=== PATIENT | female | born 1980 | race Caucasian/White ===

== ENCOUNTER 2020-01-07 13:10 | Inpatient (IN) | payer BC, SELFPAY ==
[2020-01-07] VITALS (12 sets, daily range): BP systolic 115–137; BP diastolic 66–102; PULSE 56–120; RESP 15–31; TEMP 36.6–37; O2SAT 96–100; BMI 32.8
--- NOTE | ~2020-01-07 | US_ITS ---
EXAMINATION: US breast RT limited HISTORY: Palpable lump of the upper outer quadrant of the right breast TECHNIQUE: Limited right breast ultrasound is performed. FINDINGS: There is a 1.1 x 0.7 x 0.5 cm oval, circumscribed, parallel, hypoechoic area within the ski n of the right breast at the 10:00 location 9 cm from the nipple corresponding to the palpable abnorm ality. There is posterior acoustic enhancement and associated increased vascularity. IMPRESSION: Findings consistent with infected sebaceous cyst of the right breast. BI-RADS Category 2: Benign finding(s). Reviewed, dictated and finalized at location A.
--- NOTE | ~2020-01-07 | MR_ITS ---
EXAMINATION: MR MRCP wo con/w 3D wo ind pp DATE: 01/09/2020 08:46 INDICATION: Abdominal pain with nausea. Chronic pancreatitis. TECHNIQUE: Magnetic resonance imaging (MRI) of the abdomen was performed without intravenous contrast . Sequences included coronal T2-weighted FS FSE, coronal T2-weighted FSE, axial T1-weighted LAVA, cor onal FS FIESTA, axial dual-echo T1-weighted SPGR, coronal lava-FLEX, sagittal T2-weighted FSE, axial T2-weighted FSE, and axial DWI. Thick-slab T2-weighted FSE images were obtained for magnetic resonanc e cholangiopancreatography (MRCP). Maximum intensity projection 3-D reconstructions of the volumetric data were created by the technologist. COMPARISON: Abdomen MRI 05/18/2010, CT abdomen and pelvis 01/07/2020 FINDINGS: ABDOMEN MRI: The liver and spleen are normal. The gallbladder is absent. There are dilated pancreatic duct sidechains in the tail of the pancreas, consistent with chronic pancreatitis. The adrenal gland s and kidneys are normal. There are no dilated loops of bowel. There are no pathologically enlarged l ymph nodes. There is no free intraperitoneal fluid. ABDOMEN MRCP: The common duct is normal and measures 5 mm. No choledocholithiasis. IMPRESSION: 1. No choledocholithiasis. 2. Chronic pancreatitis. Reviewed, dictated and finalized at location A.
--- NOTE | ~2020-01-07 | CT_ITS ---
EXAMINATION: CT abdomen pelvis wo con EXAM DATE: 01/07/2020 19:18 INDICATION: Upper abdominal pain with nausea and vomiting. TECHNIQUE: Spiral CT of the abdomen and pelvis was performed without contrast. Axial, coronal and sag ittal images were reviewed. The dose-length product (DLP) for this examination was 1133.30 mGy-cm. The exposure was tailored according to patient size (auto mA exposure control), and iterative reconst ruction (ASIR) was used as additional dose reduction technique. There is no prior study for comparis on. FINDINGS: Patient has had interval hysterectomy, which could explain the pelvic fat stranding identif ied. There is no nephrolithiasis or hydronephrosis. The bladder is unremarkable. Some chronic pancrea tic calcifications. Otherwise the liver, spleen, adrenal glands and pancreas are unremarkable. There are cholecystectomy clips. There is no retroperitoneal or pelvic lymphadenopathy. The appendix is normal. The stomach and small bowel are unremarkable. Small amount of colonic stool . No free intraperitoneal gas. The heart is normal in size. There are no pericardial or pleural effusions. The lung bases are unremarkable. The bones are unremarkable. IMPRESSION: 1. Interval hysterectomy with some pelvic fat stranding, likely postoperative. 2. No acute intra-abdominal findings. Reviewed, dictated and finalized at location A.
[2020-01-07 13:55] LABS: Basophils Percent Auto 0.2 % (0.2-1.2); Eosinophils Percent Auto 0.2 % (0-4.4); Hematocrit 36.9 % (37.0-47.0); Hemoglobin 11.5 g/dL (12.0-15.0); Immature Granulocyte Absolute 0.05 K/mm3 (0.00-0.031); Immature Granulocyte Percent A 0.4 % (0-0.5); Lymphocytes Absolute Auto 1.42 K/mm3 (0.9-3.2); Mean Corpuscular HGB Conc 31.2 g/dl (32-36); Mean Corpuscular Hemoglobin 24.6 pg (26-34); Mean Corpuscular Volume 78.8 fl (80-100); Mean Platelet Volume 10.2 fl (7.4-10.4); Monocytes Absolute Auto 0.8 K/mm3 (0.1-0.6); Monocytes Percent Auto 5.8 % (2.6-8.5); Neutrophils Absolute Auto 11.9 K/mm3 (1.3-6.7); Neutrophils Percent Auto 83.4 % (45.5-73.1); Platelet Count Result 617 k/mm3 (150-375); Red Blood Count 4.68 M/mm3 (4.2-5.4); Red Cell Distribution Width 13.5 % (11.5-14.5); White Blood Count 14.3 K/mm3 (4.5-10.0)
[2020-01-07 14:06] LABS: Alanine Aminotransferase 33 U/L (4-35); Albumin Level 4.7 g/dL (3.5-5.1); Alkaline Phosphatase 115 U/L (38-126); Aspartate Amino Transferase 43 U/L (14-36); Bilirubin,Total 0.8 mg/dL (0.2-1.3); Blood Urea Nitrogen 9 mg/dL (7-17); Calcium 9.8 mg/dL (8.4-10.2); Carbon Dioxide 20 mmol/L (22-30); Chloride 100 mmol/L (98-107); Estimated CRCL calculation 92 ml/min; Estimated Glomerular Filt Rate > 60; Glucose 153 mg/dL (65-105); Lipase 151 U/L (23-300); Sodium 137 mmol/L (137-145)
--- NOTE | 2020-01-07 18:06 | ED.ABDPAIN ---
HPI - Abdominal Pain General Chief Complaint: Abdominal Pain Stated Complaint: pancreatitis Time Seen by Provider: 01/07/20 17:50 Source: patient Mode of arrival: ambulatory Limitations: no limitations History of Present Illness HPI narrative: 39 yo female with h/o chronic pancreatitis, fibromyalgia who presents with c/o epigastric abdominal pain since December 18. Patient states had right ovarian mass removal and hysterectomy at [facility] on December 18. She reports she started having worsening pain after her surgery so she was admitted with elevated pancreas enzymes. She states she was admitted for 4 days and then she was released. She states she has been having worsening pain since with nausea and vomiting. She states she is unable to keep anything down. She describes severe pain that is radiating to her midback. This is similar to her previous episodes. She reports she has been having flares of pancreatitis for over 7 years since she had HELLP syndrome with her last . It has been over 7 years since she had GI scope. She has an appointment with gastroenterology at [facility] . MD elicited complaint: abdominal pain Location: epigastric Related Data Home Medications Medication Instructions Recorded Confirmed No Home Medications 01/07/20 01/07/20 Allergies Allergy/AdvReac Type Severity Reaction Status Date / Time NSAIDS (Non-Steroidal Allergy Severe Anaphylactic Verified 01/07/20 18:59 Anti-Inflamma Shock iohexol Allergy Swelling Verified 01/07/20 18:59 [From CONTRAST - CT, XRAY] of Lip/Tongue/Throat ENVIRONMENTAL ALLERGENS Allergy Mild Unknown Uncoded 11/12/19 08:17 Review of Systems Review of Systems: All systems reviewed & are unremarkable except as noted in HPI and below Constitutional: Constitutional: Reports chills and Reports fever(s) ENT: Reports dizziness and Denies nasal congestion Cardiovascular: Cardiovascular: Denies chest pain Respiratory: Respiratory: Denies cough and Denies dyspnea Gastrointestinal: Gastrointestinal: Reports abdominal pain, Reports nausea and Reports vomiting Genitourinary: Genitourinary: Reports no additional female genitourinary complaints Musculoskeletal: Musculoskeletal: Reports back pain [facility] Past Medical History Medical History (Updated 01/07/20 @ 20:21 by Emi Agarwal MD) Chronic pancreatitis Fibromyalgia Gall bladder disease GERD (gastroesophageal reflux disease) Herniated disc, cervical x4 History of pneumonia Hx of gout Neuropathy Right arm fracture Surgical History Surgical History (Updated 01/07/20 @ 18:14 by Emi Agarwal MD) H/O hysterectomy with oophorectomy H/O right wrist surgery History of cholecystectomy History of knee surgery History of partial cystectomy History of spinal surgery Hx of tubal ligation Social History Social History (Updated 11/12/19 @ 08:38 by TARYN Van) Smoking status: Never smoker Alcohol intake: never Substance use: never Gender identity (if verbalized by the patient): Female Exam Narrative: Exam Narrative: GENERAL: in moderate distress due to pain HEAD: Normocephalic, atraumatic EYES: PERRLA and EOMI, conjunctiva clear without discharge THROAT:Mucous membranes moist NECK: Supple, without lymphadenopathy or mass RESPIRATORY: No respiratory distress, Airway patent, Respirations non-labored, Clear to auscultation without rales, rhonchi or wheeze HEART: Regular rate and rhythm. No murmur heard. Normal peripheral pulses. ABDOMEN: Soft, bilateral upper quadrant, nondistended, normal active bowel sounds. No masses. No rebound or guarding, No organomegaly. EXTREMITIES: No edema, normal strength with full range of motion. SKIN: Warm, dry, pale NEURO: Alert and oriented x3. CN 2-12 grossly intact. No focal deficits. PSYCH: Normal mood and affect. Course Reevaluation(s) Reevaluation #1: PAtient states her pain is gone but she is
[2020-01-07] MEDS: ONDANSETRON INJ 4 MG/2 ML VIAL IV PUSH ×2 (18:50→22:53)
[2020-01-07] MEDS: LACTATED RINGERS 1,000 ML 999 ML IV CONT (18:50)
[2020-01-07] MEDS: PANTOPRAZOLE SODIUM IV 40 MG VIAL IV PUSH (18:52)
[2020-01-07] MEDS: HYDROMORPHONE HCL 1 MG/ML INJ IV PUSH (18:54)
[2020-01-07 20:17] LABS: Add Urine Microscopic? YES; Appearance Urine Cloudy (Clear); Bacteria Urine Trace /hpf; Bilirubin Urine Negative (Negative); Blood Urine 1+ (Negative); Color Urine Yellow (Yellow); Glucose Urine UA Negative (Negative); Ketones Urine 1+ mg/dL (Negative); Leukocyte Esterase Ur 3+ LEU/UL (Negative); Mucus Urine Heavy /lpf; Nitrate Urine Negative (Negative); Protein Urine 1+ mg/dL (Negative); Squamous Epithelial Cell Urine Many /hpf (Few); WBC Urine 51-75 /hpf
[2020-01-07] MEDS: METOCLOPRAMIDE HCL INJ 10 MG/2 ML VIAL IV PUSH (20:22)
[2020-01-07] MEDS: LACTATED RINGERS 1,000 ML 125 ML IV CONT (21:49)
--- NOTE | 2020-01-07 22:06 | ADMGEN ---
This patient, Lizeth Napier, was admitted to Medical Room 347-. Patient/family oriented to hospital policies and general routines including ID bracelet, bed and alarms, visiting hours, pain management, procedures, bathroom and other care routines, personal items, smoking policy, room service/diet, and visiting hours. Valuables list has been completed. Information on how to activate the Rapid Response Team has been discussed. Patient/Family are encouraged to report perceived risks to care and to ask questions if they do not understand what they are told or what they should do.
[2020-01-07] MEDS: HYDROMORPHONE HCL 1 MG/ML INJ 0.5 MG IV PUSH (22:53)
[2020-01-08] MEDS: PROMETHAZINE HCL 25 MG/ML AMPUL IM (02:38)
[2020-01-08] MEDS: HYDROMORPHONE HCL 1 MG/ML INJ 0.5 MG IV PUSH ×5 (03:08→21:12)
[2020-01-08 04:54] VITALS: BP 132/81; PULSE 69; RESP 16; TEMP 36.4; O2SAT 98
[2020-01-08] MEDS: ONDANSETRON INJ 4 MG/2 ML VIAL IV PUSH ×4 (05:07→21:15)
[2020-01-08 05:38] LABS: Basophils Percent Auto 0.1 % (0.2-1.2); Eosinophils Percent Auto 0.6 % (0-4.4); Hematocrit 28.3 % (37.0-47.0); Hemoglobin 8.5 g/dL (12.0-15.0); Immature Granulocyte Absolute 0.02 K/mm3 (0.00-0.031); Immature Granulocyte Percent A 0.3 % (0-0.5); Lymphocytes Absolute Auto 1.65 K/mm3 (0.9-3.2); Lymphocytes Percent Auto 23.2 % (18.3-44.2); Mean Corpuscular Hemoglobin 24.6 pg (26-34); Mean Platelet Volume 10.3 fl (7.4-10.4); Monocytes Absolute Auto 0.6 K/mm3 (0.1-0.6); Monocytes Percent Auto 8.7 % (2.6-8.5); Neutrophils Absolute Auto 4.8 K/mm3 (1.3-6.7); Neutrophils Percent Auto 67.1 % (45.5-73.1); Platelet Count Result 357 k/mm3 (150-375); Red Blood Count 3.45 M/mm3 (4.2-5.4); Red Cell Distribution Width 13.6 % (11.5-14.5); White Blood Count 7.1 K/mm3 (4.5-10.0)
[2020-01-08 05:57] LABS: Alanine Aminotransferase 25 U/L (4-35); Albumin Level 3.5 g/dL (3.5-5.1); Alkaline Phosphatase 78 U/L (38-126); Aspartate Amino Transferase 25 U/L (14-36); Bilirubin,Total 0.4 mg/dL (0.2-1.3); Blood Urea Nitrogen 7 mg/dL (7-17); Calcium 8.7 mg/dL (8.4-10.2); Carbon Dioxide 25 mmol/L (22-30); Chloride 101 mmol/L (98-107); Estimated CRCL calculation 103 ml/min; Estimated Glomerular Filt Rate > 60; Glucose 98 mg/dL (65-105); Lipase 67 U/L (23-300); Potassium 3.3 mmol/L (3.4-5.0); Sodium 135 mmol/L (137-145)
[2020-01-08] MEDS: LACTATED RINGERS 1,000 ML 125 ML IV CONT ×2 (06:06→14:24)
[2020-01-08] MEDS: PANTOPRAZOLE SODIUM IV 40 MG VIAL IV PUSH (08:21)
[2020-01-08 14:00] VITALS: BP 120/73; PULSE 64; RESP 14; TEMP 36; O2SAT 99
--- NOTE | 2020-01-08 17:27 | PM.IMHP ---
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 She reports that her first , 13 years ago, was complicated by hyperemesis gravidarum, gallstones, and pancreatitis. She developed pre-eclampsia and HELLP syndrome and required cholecystectomy. She reports a long hx of chronic pancreatitis with intermittent exacerbations. She reports that her current sx have been present since 11/19/19. She notes that her pain originally started as lower abdominal discomfort with bloating. She was diagnosed with a large right ovarian mass and underwent right oophorectomy and hysterectomy by Dr. Goodrich 12/18/19 at [place]. She reports that her lower abdominal discomfort and bloating improved following mass removal. She has not received pathology reports yet. She reports that she developed acute on chronic pancreatitis post-operatively (pancreatic enzymes 1800 per pt) and was admitted for IV fluid hydration and pain management at [facility]. She reports that sx improved somewhat while hospitalized and she discharged home on CLD. Her sx worsened 01/03-01/04 with the development of significant epigastric abdominal pain radiating to the back. She also endorses nausea and vomiting. She reports chronic constipation. Her last BM was Tuesday. She reports a hx of AM vomiting for many years but does note that this worsened recently. She also endorses weight loss due to decreased appetite. She denies hematemesis, melena, and hematochezia. She denies chest pain. She denies urinary urgency, frequency, and dysuria. She reports that pain is often worse immediately after eating. She was established with GI 7 years ago and reports a hx of at least 10 ERCPs. She also reports that she was told she had Barretts esophagus in the past which did clear on repeat EGD. She is not taking a PPI. She has not had an EGD or ERCP in at least 7 years since she moved and did not establish with a GI provider locally. She reports that she stopped taking all of her previous medications and elected to treat her condition with dietary modifications including intermittent NPO/CLD during sx exacerbations. She also c/o a right breast cyst intermittently for the past several months. Review of Systems Review of Systems: Narrative: Constitutional: Pt is afebrile. She endorses intermittent chills. She endorses anorexia and malaise. She denies sick contacts or recent travel. Eyes: Pt denies vision change. No additional eye complaints. ENT: Pt denies change in hearing, nasal congestion, dysphagia, odynophagia, and sore throat. Cardiovascular: Pt denies palpitations and chest pain. She denies PND and orthopnea. She denies dyspnea on exertion. Respiratory: She denies cough and shortness of breath. Gastrointestinal: She endorses epigastric abdominal pain radiating to the back. She also c/o nausea and vomiting. She is passing flatus. Last BM was Tuesday. She reports chronic constipation. She denies diarrhea. She denies hematochezia and melena. Genitourinary: She denies dysuria, frequency, urgency, and hesitancy. Musculoskeletal: She denies joint pain and swelling. She denies muscle cramps and weakness. Skin: She reports cystic and erythematous lesion on her right breast that is recurrent for the past several months. Neurologic: Denies focal weakness, paresthesias, confusion, and speech change. Reports chronic upper extremity neuropathy. Psychiatric: Denies mood change. Reports anxiety that is managed non-pharmacologically. Hematologic: Denies easy bruising and bleeding. All systems reviewed & are unremarkable except as noted in HPI and below PMF
--- NOTE | 2020-01-08 19:11 | WPDGICN ---
Assessment and Plan Assessment and plan (1) Chronic pancreatitis: Qualifiers: Pancreatitis type: other Qualified Code(s): K86.1 - Other chronic pancreatitis Code(s): K86.1 - Other chronic pancreatitis Status: Acute Assessment and Plan: probably exacerbatin of chronic pancreatitis with normal enzymes. Will start her on creon with meals, also she has gastroparesis which can explain also symptoms- continue with antiemetics and will add reglan (she has taken before) will get mrcp to assess if pd strictures and will benefit from another ERCP (also get records from previous gi doctor) (2) Intractable nausea and vomiting: Code(s): R11.2 - Nausea with vomiting, unspecified Status: Acute Assessment and Plan: continue with antiemetics will do egd tomorrow (3) Gastroparesis: Code(s): K31.84 - Gastroparesis Status: Acute (4) Abdominal pain: Qualifiers: Abdominal location: unspecified location Qualified Code(s): R10.9 - Unspecified abdominal pain Code(s): R10.9 - Unspecified abdominal pain Status: Acute Assessment and Plan: recent gynecological surgery, will get records if possible of path report GI Consult Note Consult date/time: 01/08/20 19:11 Reason for consult: nausea, vomiting and abdominal pain HPI: Lizeth Napier is a 39 year old female she has history of chronic pancreatitis as complication from GS pancreatitis after had HELLP syndrome about 13-14 years ago, she required multiple ERCP with PD stents (last one about 7 years ago), [place] and when came back did not establish with GI doctor. She also has been diagnosed with gastroparesis (had abnormal gastric emptying study and tried reglan previously). She normally has mild abdominal pain but on October had more pain with bloating than usual, diagnosed with large ovarian mass which was removed in [facility] with hysterectomy but she had persistent nausea, vomiting and also abdominal discomfort, similar to previous exacerbation of chronic pancreatitis. CT a/p showed interval hysterectomy with some pelvic fat stranding, likely postoperative, no acute intra-abdominal findings. AST yesterday mildly elevated, today normal labs including lipase. Review of Systems Constitutional: Constitutional: Denies headache(s) and Denies weakness Eyes: Eyes: Denies blurry vision ENT: Reports Normal hearing present, Denies headache(s) and Denies neck pain Cardiovascular: Cardiovascular: Denies chest pain and Denies dyspnea Respiratory: Respiratory: Denies dyspnea Gastrointestinal: Gastrointestinal: Reports abdominal pain, Reports bloating and Reports nausea Genitourinary: Genitourinary: Denies dysuria Musculoskeletal: Musculoskeletal: Denies neck pain Integumentary/Breasts: Skin/Breast: Denies dry skin Neurologic: Reports Normal hearing present, Denies headache(s) and Denies weakness Psychiatric: Psychiatric: Denies anxiety Endocrine: Endocrine: Denies change in body appearance Hematologic/Lymphatic: Hematologic/Lymphatic: Denies easy bleeding Allergic/Immunologic: Allergic/Immunologic: Denies urticaria PMFSH Past Medical History Medical History (Updated 01/08/20 @ 19:20 by Roderick Garcia MD) Abdominal pain Chronic pancreatitis Constipation Fibromyalgia Gall bladder disease Gastroparesis GERD (gastroesophageal reflux disease) Herniated disc, cervical x4 History of pneumonia Hx of gout Neuropathy Right arm fracture Surgical History Surgical History (Updated 01/08/20 @ 19:07 by Charisse Rivas PA-C) H/O hysterectomy with oophorectomy Right oophorectomy H/O right wrist surgery History of cholecystectomy History of knee surgery History of partial cystectomy History of spinal surgery Hx of tubal ligation Family History Family History (Updated 01/08/20 @ 19:10 by Charisse Rivas PA-C) Mother Diabetes mellitus Father Oral cancer
[2020-01-08] MEDS: METOCLOPRAMIDE HCL 5 MG TABLET PO (20:22)
[2020-01-08 22:00] VITALS: BP 127/69; PULSE 77; RESP 16; TEMP 36.3; O2SAT 98
[2020-01-09] VITALS (7 sets, daily range): BP systolic 114–148; BP diastolic 62–94; PULSE 70–88; RESP 15–28; TEMP 36.2–36.3; O2SAT 97–100
[2020-01-09] MEDS: HYDROMORPHONE HCL 1 MG/ML INJ 0.5 MG IV PUSH ×4 (01:22→13:18)
[2020-01-09] MEDS: LACTATED RINGERS 1,000 ML 125 ML IV CONT (04:17)
[2020-01-09] MEDS: ONDANSETRON INJ 4 MG/2 ML VIAL IV PUSH ×3 (05:27→13:17)
[2020-01-09] MEDS: METOCLOPRAMIDE HCL 5 MG TABLET PO ×4 (05:35→22:12)
[2020-01-09 05:55] LABS: Basophils Percent Auto 0.1 % (0.2-1.2); Eosinophils Absolute Auto 0.1 K/mm3 (0-0.3); Eosinophils Percent Auto 0.8 % (0-4.4); Hematocrit 28.4 % (37.0-47.0); Hemoglobin 8.4 g/dL (12.0-15.0); Immature Granulocyte Absolute 0.02 K/mm3 (0.00-0.031); Immature Granulocyte Percent A 0.3 % (0-0.5); Lymphocytes Absolute Auto 1.43 K/mm3 (0.9-3.2); Lymphocytes Percent Auto 19.8 % (18.3-44.2); Mean Corpuscular HGB Conc 29.6 g/dl (32-36); Mean Corpuscular Hemoglobin 24.3 pg (26-34); Mean Corpuscular Volume 82.3 fl (80-100); Mean Platelet Volume 10.6 fl (7.4-10.4); Monocytes Absolute Auto 0.6 K/mm3 (0.1-0.6); Monocytes Percent Auto 7.6 % (2.6-8.5); Neutrophils Absolute Auto 5.1 K/mm3 (1.3-6.7); Neutrophils Percent Auto 71.4 % (45.5-73.1); Platelet Count Result 322 k/mm3 (150-375); Red Blood Count 3.45 M/mm3 (4.2-5.4); Red Cell Distribution Width 13.6 % (11.5-14.5); White Blood Count 7.2 K/mm3 (4.5-10.0)
[2020-01-09 06:21] LABS: Alanine Aminotransferase 20 U/L (4-35); Albumin Level 3.3 g/dL (3.5-5.1); Alkaline Phosphatase 77 U/L (38-126); Aspartate Amino Transferase 21 U/L (14-36); Bilirubin,Total 0.3 mg/dL (0.2-1.3); Blood Urea Nitrogen 3 mg/dL (7-17); Calcium 8.5 mg/dL (8.4-10.2); Carbon Dioxide 25 mmol/L (22-30); Chloride 103 mmol/L (98-107); Estimated CRCL calculation 103 ml/min; Estimated Glomerular Filt Rate > 60; Glucose 84 mg/dL (65-105); Lipase 95 U/L (23-300); Potassium 3.7 mmol/L (3.4-5.0); Sodium 136 mmol/L (137-145)
[2020-01-09 07:03] LABS: Iron 27 ug/dL (37-170)
[2020-01-09 07:04] LABS: Hypochromasia 1+ (NORMAL); Platelet Estimate Adequate (Adequate)
[2020-01-09 07:12] LABS: Percent Iron Saturation 9 % (20-50)
[2020-01-09 09:12] LABS: Transferrin 236 mg/dL (206-381)
[2020-01-09] MEDS: PANTOPRAZOLE SODIUM IV 40 MG VIAL IV PUSH (09:32)
[2020-01-09] MEDS: LACTATED RINGERS 1,000 ML 150 ML IV CONT (10:56)
--- NOTE | 2020-01-09 11:12 | WPDANESEPPF ---
Anes - Initial Pre Proc Eval Procedure: Operation Date: 01/09/20 11:30 Proposed Procedures p Esophagogastroduodenoscopy - Roderick Garcia MD Date/Time: 01/09/20 11:12 Surgeon: Charisse Rivas PA-C Pre Op Diagnosis: intractable nausea and vomiting chronic pencreatit Patient Data Age: 39 Gender: F Height: 5 ft 8 in Weight: 98 kg Last Vital Signs Temp 97.2 F L 01/09/20 10:51 Pulse 75 01/09/20 10:51 Resp 18 01/09/20 10:51 BP 141/90 H 01/09/20 10:51 Pulse Ox 99 01/09/20 10:51 Allergies Allergy/AdvReac Type Severity Reaction Status Date / Time NSAIDS (Non-Steroidal Allergy Severe Anaphylactic Verified 01/07/20 18:59 Anti-Inflamma Shock iohexol Allergy Swelling Verified 01/07/20 18:59 [From CONTRAST - CT, XRAY] of Lip/Tongue/Throat ENVIRONMENTAL ALLERGENS Allergy Mild Unknown Uncoded 11/12/19 08:17 Home Medications Medication Instructions Recorded Confirmed Type No Home Medications 01/07/20 01/07/20 History Laboratory Tests 01/09/20 01/09/20 01/09/20 05:19 05:19 05:19 WBC 7.2 K/mm3 K/mm3 (4.5-10.0) RBC 3.45 M/mm3 L M/mm3 (4.2-5.4) Hgb 8.4 g/dL L g/dL (12.0-15.0) Hct 28.4 % L % (37.0-47.0) MCV 82.3 fl fl (80-100) MCH 24.3 pg L pg (26-34) MCHC 29.6 g/dl L g/dl (32-36) RDW 13.6 % % (11.5-14.5) Plt Count 322 k/mm3 k/mm3 (150-375) MPV 10.6 fl H fl (7.4-10.4) Immature Gran % (Auto) 0.3 % % (0-0.5) Neut % (Auto) 71.4 % % (45.5-73.1) Lymph % (Auto) 19.8 % % (18.3-44.2) [place] % (Auto) 7.6 % % (2.6-8.5) Eos % (Auto) 0.8 % % (0-4.4) Baso % (Auto) 0.1 % L % (0.2-1.2) Lymph # (Auto) 1.43 K/mm3 K/mm3 (0.9-3.2) [place] # (Auto) 0.6 K/mm3 K/mm3 (0.1-0.6) Eos # (Auto) 0.1 K/mm3 K/mm3 (0-0.3) Baso # (Auto) 0.0 K/mm3 K/mm3 (0.0-0.1) Abs Immat Gran (auto) 0.02 K/mm3 K/mm3 (0.00-0.031) Absolute Neuts (auto) 5.1 K/mm3 K/mm3 (1.3-6.7) Absolute Nucleated RBC 0.0 K/mm3 K/mm3 (0.0-0.012) Nucleated RBC % 0.0 % % (0.0-0.2) Platelet Estimate Adequate (Adequate) Hypochromasia 1+ (NORMAL) Sodium 136 mmol/L L mmol/L (137-145) Potassium 3.7 mmol/L mmol/L (3.4-5.0) Chloride 103 mmol/L mmol/L (98-107) Carbon Dioxide 25 mmol/L mmol/L (22-30) BUN 3 mg/dL L mg/dL (7-17) Creatinine 0.80 mg/dL mg/dL (0.7-1.0) Estim Creat Clear Calc 103 ml/min ml/min Estimated GFR > 60 (59 - ) Glucose 84 mg/dL mg/dL (65-105) Calcium 8.5 mg/dL mg/dL (8.4-10.2) Iron 27 ug/dL L ug/dL (37-170) TIBC 312 ug/dL ug/dL (261-462) % Saturation 9 % L % (20-50) Transferrin Ferritin Total Bilirubin 0.3 mg/dL mg/dL (0.2-1.3) AST 21 U/L U/L (14-36) ALT 20 U/L U/L (4-35) Alkaline Phosphatase 77 U/L U/L (38-126) Total Protein 6.0 g/dL L g/dL (6.3-8.2) Albumin 3.3 g/dL L g/dL (3.5-5.1) Lipase 95 U/L U/L (23-300) 01/09/20 01/09/20 07:32 07:33 WBC RBC Hgb Hct MCV MCH MCHC RDW Plt Count MPV Immature Gran % (Auto) Neut % (Auto) Lymph % (Auto) [place] % (Auto) Eos % (Auto) Baso % (Auto) Lymph # (Auto) [place] # (Auto) Eos # (Auto) Baso # (Auto) Abs Immat Gran (auto) Absolute Neuts (auto) Absolute Nucleated RBC Nucleated RBC % Platelet Estimate Hypochromasia Sodium Potassium Chloride Carbon Dioxide
[2020-01-09] MEDS: LIPASE/AMYLASE/PROTEASE 12,000 UNITS CAP 1 CAP PO ×2 (13:04→16:53)
--- NOTE | 2020-01-09 14:33 | PM.IMPN ---
Progress Note: A&P Assessment and Plan (1) Chronic pancreatitis: Qualifiers: Pancreatitis type: other Qualified Code(s): K86.1 - Other chronic pancreatitis Code(s): K86.1 - Other chronic pancreatitis Status: Acute Assessment and Plan: The pt presented with epigastric pain that radiates to the back, nausea, and vomiting. She states that these sx are consistent with her prior episodes of acute on chronic pancreatitis. Lipase is not elevated. CT abd/pelvis was performed and revealed chronic pancreatic calcifications without peripancreatic fat stranding, necrosis, or enlargement. MRCP revealed evidence of chronic pancreatitis without evidence of pancreatic duct strictures or choledocholithiasis. Common bile duct was 5mm. ERCP was not indicated as Dr. Forrester does not feel it will provide any benefit. Plan to advance to CLD. Per Dr. Forrester, if pt tolerates CLD for lunch, she may advance to low fat, low residue diet. Continue supportive care for chronic pancreatitis Continue pancreatic enzyme supplementation Continue IV fluid hydration, will decrease rate to 75 ml/hr as pt is no longer NPO Will transition to PO pain medication and zofran to ensure pt will tolerate PO regimen Dr. Forrester has been consulted, recommendations are greatly appreciated. (2) Gastroparesis: Code(s): K31.84 - Gastroparesis Status: Acute Assessment and Plan: The pt reports a hx of gastroparesis which was treated with metoclopramide in the past. It is likely that her nausea, vomiting, early satiety, and upper abdominal discomfort are, in part, due to underlying gastroparesis. Dr. Forrester has recommended metoclopramide Will discuss dietary modifications with the pt as well (3) GERD (gastroesophageal reflux disease): Code(s): K21.9 - Gastro-esophageal reflux disease without esophagitis Status: Acute Assessment and Plan: The pt reports a hx of Bustos's esophagus which resolved on repeat EGD. Last EGD was at least 7 years ago. She has not been taking PPI prior to admission. Dr. Forrester recommended EGD today. The pt underwent EGD which revealed reflux esophagitis and gastritis without ulcers or erosions. Biopsies were obtained. This is likely contributing to her pain. Will continue IV PPI while pt is inpatient. Pt will need PPI at discharge. Dr. Forrester has added carafate as well (4) Intractable nausea and vomiting: Code(s): R11.2 - Nausea with vomiting, unspecified Status: Acute Assessment and Plan: The pt had intractable nausea 01/06 that required promethazine in addition to zofran. She is doing well on zofran. She did have AM emesis (300cc, no hemoptysis). Continue zofran, will switch to PO zofran Suspect that gastroparesis is contributing as pt reports hx of gastroparesis and previously took metoclopramide when she used to follow-up regularly with GI (5) Constipation: Code(s): K59.00 - Constipation, unspecified Status: Acute Assessment and Plan: The pt reports a long hx of constipation. Her last BM was Tuesday. She does not feel constipated at this time. PO intake has been decreased. Will continue to monitor (6) Sebaceous cyst of breast: Code(s): N60.89 - Other benign mammary dysplasias of unspecified breast Status: Acute Assessment and Plan: Pt reported recurrent breast mass for the past several months. It is approximately 1x0.5cm in size. The area was initially irritated by her bra strap several months ago and is intermittently inflamed. It has resolved on its own previously. There is mild erythema surrounding the cyst (<1cm radius around cyst) without fluctuance or drainage. It is freely mobile without tethering. Breast US also suggests sebaceous cyst without any other masses identified. It appears inflamed but I do not believe that clinically, it is acutely infected. Will begin w
[2020-01-09] MEDS: LACTATED RINGERS 1,000 ML 75 ML IV CONT (16:28)
[2020-01-09] MEDS: SUCRALFATE SUSP 100 MG/ML 10 ML UDC 1000 MG PO ×2 (16:52→22:12)
[2020-01-09] MEDS: ONDANSETRON HCL ODT 4 MG TABLET PO (18:47)
[2020-01-09] MEDS: ACETAMINOPHEN 325 MG TABLET 650 MG PO (22:13)
--- NOTE | 2020-01-09 23:01 | PC.NURSE ---
Spoke with Shavonne Gordillo PAC concerning nauseas/vomiting. Order for reglan 10 mg IV x 1 and continue to monitor.
[2020-01-10] MEDS: METOCLOPRAMIDE HCL INJ 10 MG/2 ML VIAL IV PUSH (01:09)
[2020-01-10] MEDS: ONDANSETRON INJ 4 MG/2 ML VIAL IV PUSH ×3 (01:09→18:12)
--- NOTE | 2020-01-10 03:04 | PC.NURSE ---
Spoke with Dr Vitale concerning patient still having nausea/vomiting after being given reglan and zofran IV. Orders given for nausea. Patient then complainign of pain and wanting something for sleep. Orders recieved. Will continue to monitor
[2020-01-10] MEDS: PROMETHAZINE HCL 25 MG/ML AMPUL IM (03:15)
[2020-01-10] MEDS: LORAZEPAM INJ 2 MG/ML VIAL 1 MG IV PUSH (03:16)
[2020-01-10 06:00] VITALS: BP 131/76; PULSE 88; RESP 16; TEMP 36.3; O2SAT 95
[2020-01-10 06:22] LABS: Eosinophils Percent Auto 0.4 % (0-4.4); Hematocrit 30.6 % (37.0-47.0); Hemoglobin 9.3 g/dL (12.0-15.0); Immature Granulocyte Absolute 0.02 K/mm3 (0.00-0.031); Immature Granulocyte Percent A 0.3 % (0-0.5); Lymphocytes Absolute Auto 1.03 K/mm3 (0.9-3.2); Mean Corpuscular HGB Conc 30.4 g/dl (32-36); Mean Corpuscular Hemoglobin 24.8 pg (26-34); Mean Corpuscular Volume 81.6 fl (80-100); Mean Platelet Volume 10.7 fl (7.4-10.4); Monocytes Absolute Auto 0.5 K/mm3 (0.1-0.6); Monocytes Percent Auto 5.8 % (2.6-8.5); Neutrophils Absolute Auto 6.4 K/mm3 (1.3-6.7); Neutrophils Percent Auto 80.5 % (45.5-73.1); Platelet Count Result 344 k/mm3 (150-375); Red Blood Count 3.75 M/mm3 (4.2-5.4); Red Cell Distribution Width 13.6 % (11.5-14.5)
[2020-01-10 06:42] LABS: Alanine Aminotransferase 18 U/L (4-35); Albumin Level 3.7 g/dL (3.5-5.1); Alkaline Phosphatase 82 U/L (38-126); Aspartate Amino Transferase 21 U/L (14-36); Bilirubin,Total 0.4 mg/dL (0.2-1.3); Blood Urea Nitrogen 3 mg/dL (7-17); Calcium 9.1 mg/dL (8.4-10.2); Carbon Dioxide 23 mmol/L (22-30); Chloride 103 mmol/L (98-107); Estimated CRCL calculation 103 ml/min; Estimated Glomerular Filt Rate > 60; Glucose 94 mg/dL (65-105); Potassium 3.8 mmol/L (3.4-5.0); Sodium 135 mmol/L (137-145)
[2020-01-10] MEDS: PANTOPRAZOLE SODIUM IV 40 MG VIAL IV PUSH (08:37)
[2020-01-10] MEDS: LACTATED RINGERS 1,000 ML 75 ML IV CONT (08:37)
[2020-01-10] MEDS: LIPASE/AMYLASE/PROTEASE 12,000 UNITS CAP 1 CAP PO ×3 (08:38→16:31)
--- NOTE | 2020-01-10 10:36 | P.PNAN_ITS ---
Anes - Prog Note Post-Op Date/Time: 01/10/20 10:36 Cardiovascular status: normal Respiratory status: normal Airway patency: baseline Mental status: baseline Post-Op hydration status: normal Vital Signs: Last Vital Signs Temp 36.3 C L 01/10/20 06:00 Pulse 88 01/10/20 06:00 Resp 16 01/10/20 06:00 BP 131/76 01/10/20 06:00 Pulse Ox 95 01/10/20 06:00 I/O: Intake & Output 01/09/20 01/10/20 01/10/20 23:59 07:59 15:59 Intake Total 120 1350 Output Total 1100 Balance 120 250 Laboratory Tests 01/10/20 05:57 01/10/20 05:57 01/10/20 01/10/20 05:57 05:57 WBC 8.0 RBC 3.75 L Hgb 9.3 L Hct 30.6 L MCV 81.6 MCH 24.8 L MCHC 30.4 L RDW 13.6 Plt Count 344 MPV 10.7 H Immature Gran % (Auto) 0.3 Neut % (Auto) 80.5 H Lymph % (Auto) 13.0 L [place] % (Auto) 5.8 Eos % (Auto) 0.4 Baso % (Auto) 0.0 L Lymph # (Auto) 1.03 [place] # (Auto) 0.5 Eos # (Auto) 0.0 Baso # (Auto) 0.0 Abs Immat Gran (auto) 0.02 Absolute Neuts (auto) 6.4 Absolute Nucleated RBC 0.0 Nucleated RBC % 0.0 Sodium 135 L Potassium 3.8 Chloride 103 Carbon Dioxide 23 BUN 3 L Creatinine 0.80 Estim Creat Clear Calc 103 Estimated GFR > 60 Glucose 94 Calcium 9.1 Total Bilirubin 0.4 AST 21 ALT 18 Alkaline Phosphatase 82 Total Protein 7.0 Albumin 3.7 Post-procedural complaints: none Patient Feedback: Patient satisfied with anesthetic care.
[2020-01-10] MEDS: METOCLOPRAMIDE HCL 5 MG TABLET PO ×3 (11:16→21:36)
[2020-01-10] MEDS: SUCRALFATE SUSP 100 MG/ML 10 ML UDC 1000 MG PO ×3 (11:16→21:36)
[2020-01-10 14:00] VITALS: BP 133/69; PULSE 96; RESP 16; TEMP 36.7; O2SAT 95
[2020-01-10] MEDS: HYDROMORPHONE HCL 1 MG/ML INJ 0.5 MG IV PUSH ×3 (14:03→22:10)
--- NOTE | 2020-01-10 16:38 | WPDGIPROGNO ---
Progress Note: A&P Assessment and Plan (1) Chronic pancreatitis: Qualifiers: Pancreatitis type: other Qualified Code(s): K86.1 - Other chronic pancreatitis Code(s): K86.1 - Other chronic pancreatitis Status: Acute Assessment and Plan: she has chronic pain, reviewed hospital records from [facility] after her hysterectomy and ovarian surgery (path benign) last month, she also had CT scan that showed exacerbation of chronic pancreatitis. continue with supportive care, pain meds as needed and advance diet as tolerated continue with creon, antiemetics prn she can see me in office after discharge (2) Abdominal pain: Qualifiers: Abdominal location: unspecified location Qualified Code(s): R10.9 - Unspecified abdominal pain Code(s): R10.9 - Unspecified abdominal pain Status: Acute Assessment and Plan: multifactorial (gastroparesis, chronic pancreatitis, etc). egd showed reflux esophagitis and mild gastritis (3) Iron deficiency anemia: Qualifiers: Iron deficiency anemia type: unspecified iron deficiency Qualified Code(s): D50.9 - Iron deficiency anemia, unspecified Code(s): D50.9 - Iron deficiency anemia, unspecified Status: Acute Assessment and Plan: chronic, it was also part of the reason she had hysterectomy. She says that had colonoscopy in 2011 (4) Intractable nausea and vomiting: Code(s): R11.2 - Nausea with vomiting, unspecified Status: Acute (5) GERD (gastroesophageal reflux disease): Qualifiers: Esophagitis presence: with esophagitis Qualified Code(s): K21.0 - Gastro-esophageal reflux disease with esophagitis Code(s): K21.9 - Gastro-esophageal reflux disease without esophagitis Status: Acute Assessment and Plan: continue with ppi Subjective Date/time seen: 01/10/20 16:38 Interval history: yesterday when IV medications were discontinued she got sicker again, now is feeling better after received iv meds and able to tolerate diet, less nausea and pain now is under control. Review of Systems Review of Systems: All systems reviewed & are unremarkable except as noted in HPI and below Exam Const: General: comfortable and no acute distress HENMT: General nose exam: Normal nares present Eyes: General: appearance normal, both eyes and all related structures Neck: Neck: no JVD Resp: Auscultation: clear to auscultation bilaterally Cardio: Rate: regular rate Rhythm: regular rhythm GI: Inspection: non-distended GI Palp: Yes Soft to palpation Skin: General skin exam: normal color Neuro: General: gait normal Speech: normal speech Extrem: General: normal to inspection Psych: Mental Status: mental status grossly normal Objective Data Vital Signs Vital Signs: Vital Signs - 24 hr 01/09/20 20:52 01/10/20 06:00 01/10/20 14:00 Temperature 97.1 F L 97.4 F L 98.1 F Pulse Rate 88 88 96 Respiratory Rate 16 16 16 Blood Pressure 135/85 131/76 133/69 Pulse Oximetry 99 95 95 Intake/Output Intake/Output: Intake & Output 01/07/20 01/08/20 01/09/20 01/10/20 23:59 23:59 23:59 23:59 Intake Total 1150 2520 3570 1670 Output Total 2400 1100 Balance 1150 2520 1170 570 Meds/Results Medications: Active Medications Generic Name Dose Route Start Last Admin Trade Name Freq PRN Reason Stop Dose Admin Lipase/Protease/Amylase 1 cap 01/09/20 08:00 01/10/20 16:[address] 12,000 Units Capsule PO 1 cap TIDWM ROSEANNA Administration Hydromorphone HCl 0.5 mg 01/10/20 13:34 01/10/20 14:03 Dilaudid Inj IV PUSH 0.5 mg Q4HR PRN Administration Pain Rated 7-10 Lactated Ringer's 1,000 mls @ 75 mls/hr 01/07/20 20:25 01/10/20 09:47 Lr - Lactated Ringers Iv IV CONT Not Given .[id number] ROSEANNA Acetaminophen 1,000 mg in 100 mls @ 400 mls/hr 01/10/20 12:00 01/10/20 11:29 Ofirmev 1,000 Mg Ivpb IVPB 01/11/20 12:01 Infused Q6HR ROSEANNA Infusion Lid
--- NOTE | 2020-01-10 19:13 | PM.IMPN ---
Progress Note: A&P Assessment and Plan (1) Chronic pancreatitis: Qualifiers: Pancreatitis type: other Qualified Code(s): K86.1 - Other chronic pancreatitis Code(s): K86.1 - Other chronic pancreatitis Status: Acute Assessment and Plan: The pt presented with epigastric pain that radiates to the back, nausea, and vomiting. She states that these sx are consistent with her prior episodes of acute on chronic pancreatitis. Lipase is not elevated. CT abd/pelvis was performed and revealed chronic pancreatic calcifications without peripancreatic fat stranding, necrosis, or enlargement. MRCP revealed evidence of chronic pancreatitis without evidence of pancreatic duct strictures or choledocholithiasis. Common bile duct was 5mm. ERCP was not indicated as Dr. Forrester does not feel it will provide any benefit. Pt tolerated CLD yesterday. She noted increased nausea and emesis overnight with the transition to PO zofran and PO pain regimen for discharge preparation. Continue supportive care for chronic pancreatitis Continue pancreatic enzyme supplementation Pt is tolerating PO fluid intake well. Will discontinue IV fluids. Pt did not tolerate PO regimen overnight and this AM with significant nausea, pain, and emesis overnight. Will resume IV zofran and IV dilaudid for today as pt has been in too much pain to advance diet. Appreciate continued input from Dr. Forrester (2) Gastroparesis: Code(s): K31.84 - Gastroparesis Status: Acute Assessment and Plan: The pt reports a hx of gastroparesis which was treated with metoclopramide in the past. It is likely that her nausea, vomiting, early satiety, and upper abdominal discomfort are, in part, due to underlying gastroparesis. Dr. Forrester has recommended metoclopramide Will discuss dietary modifications with the pt as well Discussed the risk for dystonia and tardive dyskinesia with the pt. She did not have these sx with prior use. She verbalized understanding. (3) GERD (gastroesophageal reflux disease): Qualifiers: Esophagitis presence: with esophagitis Qualified Code(s): K21.0 - Gastro-esophageal reflux disease with esophagitis Code(s): K21.9 - Gastro-esophageal reflux disease without esophagitis Status: Acute Assessment and Plan: The pt reports a hx of Bustos's esophagus which resolved on repeat EGD. Last EGD was at least 7 years ago. She has not been taking PPI prior to admission. The pt underwent EGD 01/08 which revealed reflux esophagitis and gastritis without ulcers or erosions. Biopsies were obtained. This is likely contributing to her pain. Will continue IV PPI while pt is inpatient. Pt will need PPI at discharge. Dr. Forrester has added carafate as well (4) Intractable nausea and vomiting: Code(s): R11.2 - Nausea with vomiting, unspecified Status: Acute Assessment and Plan: The pt had intractable nausea 01/06 that required promethazine in addition to zofran. She is doing well on zofran. She had emesis overnight with switch to PO regimen but no further episodes today. Continue zofran IV due to sx exacerbation on PO regimen Suspect that gastroparesis is contributing as pt reports hx of gastroparesis and previously took metoclopramide when she used to follow-up regularly with GI (5) Constipation: Code(s): K59.00 - Constipation, unspecified Status: Acute Assessment and Plan: The pt reports a long hx of constipation. Her last BM was Tuesday. She does not feel constipated at this time. PO intake has been decreased. Will continue to monitor (6) Sebaceous cyst of breast: Code(s): N60.89 - Other benign mammary dysplasias of unspecified breast Status: Acute Assessment and Plan: Pt reported recurrent breast mass for the past several months. It is approximately 1x0.5cm in size. The area was initially irritated by her bra strap
[2020-01-10 22:00] VITALS: BP 127/77; PULSE 72; RESP 16; TEMP 36.4; O2SAT 98
[2020-01-11] MEDS: HYDROMORPHONE HCL 1 MG/ML INJ 0.5 MG IV PUSH ×2 (02:41→06:48)
[2020-01-11] MEDS: ONDANSETRON INJ 4 MG/2 ML VIAL IV PUSH ×2 (02:41→06:48)
[2020-01-11 05:22] LABS: Hematocrit 29.9 % (37.0-47.0); Hemoglobin 9.1 g/dL (12.0-15.0); Mean Corpuscular HGB Conc 30.4 g/dl (32-36); Mean Corpuscular Hemoglobin 24.7 pg (26-34); Mean Platelet Volume 10.1 fl (7.4-10.4); Platelet Count Result 339 k/mm3 (150-375); Red Blood Count 3.69 M/mm3 (4.2-5.4); Red Cell Distribution Width 13.6 % (11.5-14.5); White Blood Count 6.2 K/mm3 (4.5-10.0)
[2020-01-11 05:38] LABS: Alanine Aminotransferase 17 U/L (4-35); Albumin Level 3.3 g/dL (3.5-5.1); Alkaline Phosphatase 81 U/L (38-126); Aspartate Amino Transferase 20 U/L (14-36); Bilirubin,Total 0.2 mg/dL (0.2-1.3); Blood Urea Nitrogen 2 mg/dL (7-17); Calcium 8.5 mg/dL (8.4-10.2); Carbon Dioxide 24 mmol/L (22-30); Chloride 104 mmol/L (98-107); Estimated CRCL calculation 103 ml/min; Estimated Glomerular Filt Rate > 60; Glucose 101 mg/dL (65-105); Potassium 3.3 mmol/L (3.4-5.0); Sodium 135 mmol/L (137-145)
[2020-01-11 06:00] VITALS: BP 123/75; PULSE 71; RESP 16; TEMP 36.1; O2SAT 99
[2020-01-11] MEDS: METOCLOPRAMIDE HCL 5 MG TABLET PO ×2 (06:41→13:06)
[2020-01-11] MEDS: SUCRALFATE SUSP 100 MG/ML 10 ML UDC 1000 MG PO ×2 (06:41→13:06)
[2020-01-11 08:00] VITALS: RESP 16
[2020-01-11] MEDS: PANTOPRAZOLE SODIUM IV 40 MG VIAL IV PUSH (08:07)
[2020-01-11] MEDS: LIPASE/AMYLASE/PROTEASE 12,000 UNITS CAP 1 CAP PO ×2 (08:07→13:06)
[2020-01-11] MEDS: POTASSIUM CHLORIDE 20 MEQ TABLET 40 MEQ PO (08:07)
[2020-01-11 08:41] LABS: Magnesium 1.9 mg/dL (1.6-2.3); Phosphorus 3.5 mg/dL (2.5-4.5)
[2020-01-11 14:00] VITALS: BP 124/88; PULSE 81; RESP 18; TEMP 35.9; O2SAT 99
[2020-01-11] MEDS: IRON SUCROSE COMPLEX 100 MG in SODIUM CHLORIDE 0.9% IV 50 ML 220 MG IVPB (14:11)
--- NOTE | 2020-01-11 14:35 | PM.DS ---
DS: Diagnosis Admitting Diagnosis Admitting Diagnosis: Other chronic pancreatitis Discharge Diagnosis (1) Gastro-esophageal reflux disease with esophagitis: Code(s): K21.0 - Gastro-esophageal reflux disease with esophagitis Status: Acute (2) Gastroparesis: Code(s): K31.84 - Gastroparesis Status: Chronic (3) Chronic pancreatitis: Qualifiers: Pancreatitis type: other Qualified Code(s): K86.1 - Other chronic pancreatitis Code(s): K86.1 - Other chronic pancreatitis Status: Chronic (4) Intractable nausea and vomiting: Code(s): R11.2 - Nausea with vomiting, unspecified Status: Resolved (5) Constipation: Code(s): K59.00 - Constipation, unspecified Status: Chronic (6) Sebaceous cyst of breast: Code(s): N60.89 - Other benign mammary dysplasias of unspecified breast Status: Chronic (7) Iron deficiency anemia: Qualifiers: Iron deficiency anemia type: unspecified iron deficiency Qualified Code(s): D50.9 - Iron deficiency anemia, unspecified Code(s): D50.9 - Iron deficiency anemia, unspecified Status: Acute DS: Summary Hospital Course Reason for hospitalization: Date of Service: 01/11/20 Ele Napier is a 39 y.o. female with PMH significant for chronic pancreatitis, GERD, hx of Bustos's esophagus, gastroparesis and fibromyalgia who presented to the ED with c/o severe epigastric pain radiating to the back, nausea, anorexia, and vomiting. She was previously established with GI but had not followed-up in 7 years. Initial workup in the ED was negative for acute pancreatitis. CT abd/pelvis revealed evidence of chronic pancreatic calcifications. Dr. Forrester, GI, was consulted and recommended MRCP and EGD. MRCP revealed chronic pancreatitis without peripancreatic duct strictures or choledocholithiasis. She was treated with supportive care for her chronic pancreatitis including pancreatic enzyme supplementation with improvement, pain regimen, and antiemetic. She underwent EGD 01/09/20 which revealed reflux esophagitis and gastritis without ulcers or erosions. She was placed on PPI and sucralfate. She also had a hx of gastroparesis and was previously on metoclopramide so this was resumed as she had tolerated it well previously without ADRs. Her symptoms were felt to be multifactorial due to underlying gastroparesis, reflux esophagitis and gastritis, and chronic pancreatitis. On the day of discharge, she requested to go home since her nausea and vomiting had improved and she was able to advance her diet from CLD to low fat, low residue diet with less pain. CBC was consistent with microcytic anemia and iron studies revealed CARLITO. I suspect that her CARLITO was due, in part, to her hx of menorrhagia prior to hysterectomy in Oct. She received 1 dose of IV venofer once her nausea and vomiting had resolved the on day of discharge and was prescribed PO ferrous sulfate. She was advised to follow-up with her PCP in 1 week for labs (CBC, CMP) and check-up. Status at Discharge Functional status at discharge: independent ambulation Overall status at discharge: patient is progressing back to baseline Time Spent with Patient Time attestation: Total time spent providing and/or coordinating discharge services: 30 minutes Exam Narrative: Exam Narrative: General: Pleasant 39 y.o. female who is well-developed and lying supine in bed. She is cooperative and in no acute distress. HEENT: Normocephalic and atraumatic. Conjunctivae and lids normal. PERRL. EOMI. Mucous membranes moist. Neck: Supple. No lymphadenopathy. Cardiac: Regular rate and rhythm. Lungs: Normal respiratory effort. No acute respiratory distress. Lungs clear to auscultation. Abdomen: Bowel sounds present. Abdomen is soft and non-distended. Mild epigastric discomfort. No guarding or rebound. Extremities: No lower extremity edema. Palpable DP and PT bilaterally. Neurological: Alert and oriented. No f
--- NOTE | 2020-01-11 15:12 | ECG_ITS ---
Measurements Intervals [place] Rate: 80 P: -8 NM: 166 QRS: 0 QRSD: 85 T: -5 QT: 370 QTc: 428 Interpretive Statements SINUS RHYTHM LOW QRS VOLTAGE IN PRECORDIAL LEADS CANNOT RULE OUT SEPTAL INFARCT, AGE INDETERMINATE BORDERLINE ST-T WAVE ABNORMALITY- ANT/INF LEADS ABNORMAL ECG Electronically Signed On 01-11-2020 17:23:32 CDT by Shamir Gallardo D.O.
--- NOTE | 2020-01-11 17:02 | PC.NURSE ---
Spoke with patient about Reglan during discharge process. She has signed the discharge packet and is aware of the risks of Reglan.
== END 2020-01-11 17:05 | disposition home or self-care (01) | DRG 392 ==
LOC: ANHED 20:21 → ANH3MED 21:04
PROVIDERS: Emergency Medicine; Internal Medicine Gastroenterology; Physician Assistant; Admitting Provider Internal Medicine; Emergency Provider General Practice; PCP Nurse Practitioner Family; Visit Provider Hospitalist
PROC: 0DJ08ZZ Inspection of Upper Intestinal Tract, Via Natural or Artificial Opening Endoscopic (ICD-10-PCS; CPT 43235; principal; 2020-01-09 11:30)
DX: K31.84 Gastroparesis (principal); K86.1 Other chronic pancreatitis; K29.70 Gastritis, unspecified, without bleeding; K21.0 Gastro-esophageal reflux disease with esophagitis; K59.09 Other constipation; D50.9 Iron deficiency anemia, unspecified; M79.7 Fibromyalgia; G62.9 Polyneuropathy, unspecified; N60.89 Other benign mammary dysplasias of unspecified breast; Z90.710 Acquired absence of both cervix and uterus; Z90.49 Acquired absence of other specified parts of digestive tract
CPT/HCPCS: 36415; 74176; 74181; 76376; 76642; 80053; 81001; 81025; 82728; 83540; 83550; 83690; 83735; 84100; 84466; 85025; 85027; 87086; 88305; 93005; 96361; 96365; 96366; 96367; 96372; 96375; 96376; 99285; A9270; C9113; G0378; J0131; J0696; J1170; J1756; J2060; J2405; J2550; J2704; J2765; J3480; J7120

== ENCOUNTER 2020-04-28 20:45 | Emergency (ER) | payer BC, SELFPAY ==
--- NOTE | ~2020-04-28 | CT_ITS ---
EXAMINATION: CT abdomen pelvis wo con DATE: 04/29/2020 01:00 INDICATION: Recent ERCP examination. Severe abdominal pain. TECHNIQUE: Computed tomography (CT) of the abdomen and pelvis was performed without intravenous contr ast. The dose-length product was 1222.94 mGy-cm. Automated exposure control and iterative reconstruct ion technique were employed. COMPARISON: CT dated 01/07/2020 FINDINGS: Heart size normal. No significant pleural or pericardial effusion. There is left lower lobe atelectasis. No significant vascular abnormality. No lymphadenopathy. There is a pancreatic stent in expected position. There is mild peripancreatic inflammation, consistent with mild pancreatitis. The re are calcifications in the pancreas, consistent with chronic pancreatitis. Status post cholecystect delfino. No biliary dilatation. Nonobstructive bowel gas pattern. Normal appendix. Status post hysterecto my. No evidence for abscess or free air. IMPRESSION: 1. Mild acute superimposed on chronic pancreatitis. Pancreatic stent in expected position. Reviewed, dictated and finalized at location [facility]. IMPRESSION: 1. Mild acute superimposed on chronic pancreatitis. Pancreatic stent in expecte d position.
[2020-04-28 20:47] VITALS: BP 160/87; PULSE 114; RESP 18; TEMP 36.2; O2SAT 99
[2020-04-28 21:01] LABS: Basophils Percent Auto 0.1 % (0.2-1.2); Immature Granulocyte Absolute 0.03 K/mm3 (0.00-0.031); Immature Granulocyte Percent A 0.4 % (0-0.5); Lymphocytes Absolute Auto 0.54 K/mm3 (0.9-3.2); Mean Corpuscular HGB Conc 31.7 g/dl (32-36); Mean Corpuscular Hemoglobin 25.4 pg (26-34); Mean Corpuscular Volume 80.2 fl (80-100); Mean Platelet Volume 11.4 fl (7.4-10.4); Monocytes Absolute Auto 0.1 K/mm3 (0.1-0.6); Monocytes Percent Auto 1.3 % (2.6-8.5); Neutrophils Absolute Auto 7.1 K/mm3 (1.3-6.7); Neutrophils Percent Auto 91.2 % (45.5-73.1); Platelet Count Result 276 k/mm3 (150-375); Red Blood Count 5.11 M/mm3 (4.2-5.4); Red Cell Distribution Width 14.3 % (11.5-14.5); White Blood Count 7.7 K/mm3 (4.5-10.0)
[2020-04-28 21:22] LABS: Albumin Level 4.7 g/dL (3.5-5.1); Alkaline Phosphatase 110 U/L (38-126); Aspartate Amino Transferase 26 U/L (14-36); Bilirubin,Total 0.2 mg/dL (0.2-1.3); Blood Urea Nitrogen 7 mg/dL (7-17); Calcium 9.6 mg/dL (8.4-10.2); Carbon Dioxide 22 mmol/L (22-30); Chloride 102 mmol/L (98-107); Estimated Glomerular Filt Rate > 60; Glucose 175 mg/dL (65-105); Lipase 763 U/L (23-300); Sodium 137 mmol/L (137-145)
[2020-04-28 21:34] LABS: Alanine Aminotransferase 24 U/L (4-35)
[2020-04-28 23:06] VITALS: BP 152/67; PULSE 98; RESP 20; O2SAT 98
[2020-04-28 23:39] LABS: Add Urine Microscopic? YES; Appearance Urine Cloudy (Clear); Bacteria Urine Trace /hpf; Bilirubin Urine Negative (Negative); Blood Urine 1+ (Negative); Color Urine Yellow (Yellow); Glucose Urine UA 1+ mg/dL (Negative); Ketones Urine Trace mg/dL (Negative); Leukocyte Esterase Ur 3+ LEU/UL (Negative); Mucus Urine Moderate /lpf; Nitrate Urine Negative (Negative); Protein Urine 1+ mg/dL (Negative); Specific Grav Ur 1.023 (1.001-1.035); Squamous Epithelial Cell Urine Many /hpf (Few); Urobilinogen Urine Negative mg/dL (<2.0); WBC Urine 31-50 /hpf
--- NOTE | 2020-04-29 00:04 | ED.ABDPAIN ---
HPI - Abdominal Pain General Chief Complaint: Abdominal Pain Stated Complaint: pancreatitis Time Seen by Provider: 04/28/20 23:56 History of Present Illness HPI narrative: Patient presents with severe upper abdominal pain. She has chronic pancreatitis since her help syndrome with her first . Today she had a stent placed by Dr. Cherelle bell at [facility]. She felt fine afterwards went shopping, and then had a piece of bread. Then she had severe abdominal pain, and nausea. She has been given no eating restrictions. Her pain is 9 out of 10. She is allergic to contrast dye, and nonsteroidal anti-inflammatories. MD elicited complaint: abdominal pain Pertinent past history: other (Chronic pancreatitis) Onset (ago): year(s) Pain Consistency: constant Severity: severe Pain scale (0-10): 9 Related Data Allergies Allergy/AdvReac Type Severity Reaction Status Date / Time NSAIDS (Non-Steroidal Allergy Severe Anaphylactic Verified 04/28/20 23:10 Anti-Inflamma Shock iohexol Allergy Swelling Verified 04/28/20 23:10 [From CONTRAST - CT, XRAY] of Lip/Tongue/Throat ENVIRONMENTAL ALLERGENS Allergy Mild Unknown Uncoded 11/12/19 08:17 Review of Systems Review of Systems: Narrative: CONSTITUTIONAL: Denies fever, chills, or sweats. EYES: Denies visual changes, redness, or discharge. ENT: Denies rhinorrhea, congestion, sore throat, or otalgia. CARDIOVASCULAR: Denies chest pain, palpitations, or edema. RESPIRATORY: Denies cough or dyspnea. GASTROINTESTINAL: She has abdominal pain, and nausea, but no vomiting, or diarrhea. GENITOURINARY: Denies dysuria or hematuria. SKIN: Denies rash or itching. MUSCULOSKELETAL: Denies back pain, joint pain, or myalgia. NEUROLOGIC: Denies headache, numbness, or weakness. PSYCHIATRIC: Denies anxiety or depression. [facility] Past Medical History Medical History Abdominal pain Chronic pancreatitis Constipation Fibromyalgia Gall bladder disease Gastroparesis GERD (gastroesophageal reflux disease) Herniated disc, cervical x4 History of pneumonia Hx of gout Iron deficiency anemia Neuropathy Right arm fracture Surgical History Surgical History H/O hysterectomy with oophorectomy Right oophorectomy H/O right wrist surgery History of cholecystectomy History of knee surgery History of partial cystectomy History of spinal surgery Hx of tubal ligation Family History Family History (Updated 01/08/20 @ 19:10 by Charisse Rivas PA-C) Mother Diabetes mellitus Father Oral cancer Substance abuse Son Hirschsprung's disease Grandparent Diabetes mellitus Renal disease Grandparent Thyroid cancer Social History Social History Social History: The pt reports that she lives at home with her Harmeet who is her designated POA. She wishes to be a full code. 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 She denies alcohol and tobacco use. She does endorse THC use since 07/2019 which consists of vaping and edibles. She tries to eat a low-fat diet. She is a vegetarian. Smoking status: Never smoker Alcohol intake: never Substance use: never Substance use type: other Other substance usage details: Pt reports THC use (vape and edibles) for her neuropathy w/ onset 07/2019. 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 Gender identity (if verbalized by the patient): Female Spiritual care concerns: No Agree to blood products: Yes Exam Narrative: Exam Narrative: GENERAL: Well-appearing, well-nourished, and in no acute distress. Very sweet. HEAD: Normocephalic, atraumatic. EYES: PERRLA and EOMI. ENT: Nares clear, no rhinorrhea or epistaxis. Mucous membranes moist. NECK: Supple. CHEST: Clear to auscultation. No respiratory distress. HEART: Regular rate and rhythm. No murmur heard. Normal per
[2020-04-29] MEDS: ONDANSETRON INJ 4 MG/2 ML VIAL IV PUSH ×2 (00:23→04:32)
[2020-04-29] MEDS: SODIUM CHLORIDE 0.9% IV 1,000 ML 500 ML IV CONT (00:23)
--- NOTE | 2020-04-29 00:52 | PC.NURSE ---
Patient being taken to CT.
[2020-04-29 01:27] VITALS: PULSE 87; RESP 18; O2SAT 98
[2020-04-29 02:54] VITALS: BP 160/96; PULSE 71; RESP 20; O2SAT 97
[2020-04-29] MEDS: BELLADONNA ALK/PHENOB ELIX 10 ML, MAG HYDROX/ALUMINUM HYD/SIMETH 30 ML, LIDOCAINE HCL 2... PO (03:36)
[2020-04-29 04:15] VITALS: BP 179/91; PULSE 90; RESP 20; TEMP 36.7; O2SAT 98
[2020-04-29 06:24] VITALS: BP 159/82; PULSE 64; RESP 18; TEMP 36.8; O2SAT 100
== END 2020-04-29 06:26 | disposition short-term general hospital (02) ==
PROVIDERS: Emergency Provider Emergency Medicine; PCP Nurse Practitioner Family
DX: K86.1 Other chronic pancreatitis (principal); R11.2 Nausea with vomiting, unspecified; M79.7 Fibromyalgia; K21.9 Gastro-esophageal reflux disease without esophagitis
CPT/HCPCS: 36415; 74176; 80053; 81001; 81025; 83690; 85025; 87086; 87088; 96361; 96365; 96375; 96376; 99285; A9270; J1170; J2405; J2543; J7030

== ENCOUNTER 2020-07-20 11:39 | Emergency (ER) | payer BC, SELFPAY ==
--- NOTE | ~2020-07-20 | CT_ITS ---
EXAMINATION: CT abdomen pelvis wo con DATE: 07/20/2020 12:17 INDICATION: Epigastric abdominal pain. History of pancreatitis. TECHNIQUE: Computed tomography (CT) of the abdomen and pelvis was performed without intravenous contr ast. Automated exposure control and iterative reconstruction technique were employed. Exam dose: 875 .03 mGy-cm total exam DLP. COMPARISON: 04/29/[address] abdomen pelvis 11/12/2019 CT abdomen pelvis FINDINGS: The lung bases are clear. Normal heart size. No pericardial or pleural effusion. Status post cholecystectomy. There is some air in the extrahepatic biliary tree. No biliary dilatatio n. There are multiple pancreatic calcifications consistent with chronic pancreatitis. No pancreatic mass lesion or ductal dilatation. No peripancreatic fluid or fat stranding is noted. No hepatic, splenic, and adrenal or renal space-occupying mass lesion is evident. Normal caliber of the abdominal aorta. No intraperitoneal or retroperitoneal or pelvic mass lesion or adenopathy or ascites. Normal caliber of the abdominal aorta. No intraperitoneal or retroperitoneal or pelvic mass lesion or adenopathy or ascites is detected. Normal appendix. No bowel obstruction, bowel wall thickening, pneumatosis or intraperitoneal free air . Status post hysterectomy. The left ovary appears unremarkable. The urinary bladder is evacuated, not optimally evaluated. Included skeletal structures are unremarkable. No suspicious osteolytic or osteoblastic lesions are n oted. IMPRESSION: Chronic pancreatitis Status post cholecystectomy Reviewed, dictated and finalized at [facility]. Reviewed, dictated and finalized at location [facility].
[2020-07-20 11:42] VITALS: BP 146/89; PULSE 97; RESP 20; TEMP 36.8; O2SAT 100
--- NOTE | 2020-07-20 11:57 | ED.ABDPAIN ---
HPI - Abdominal Pain General Chief Complaint: Abdominal Pain Stated Complaint: epigastric pain/chronic pancreatitis Time Seen by Provider: 07/20/20 11:40 Source: patient Mode of arrival: ambulatory Limitations: no limitations History of Present Illness HPI narrative: Patient is a 40-year-old female who presents with a few days duration of emesis and abdominal pain with history of chronic pancreatitis has been taking Zofran and Reglan with no resolution denies diarrhea fever or URI symptoms or other complaints presents in no distress slightly uncomfortable patient has had similar occurrences in the past is followed by GI at an outside facility. Related Data Home Medications Medication Instructions Recorded Confirmed prochlorperazine maleate 10 mg PO Q6-8H PRN 07/20/20 07/20/20 Allergies Allergy/AdvReac Type Severity Reaction Status Date / Time NSAIDS (Non-Steroidal Allergy Severe Anaphylactic Verified 07/20/20 11:47 Anti-Inflamma Shock iohexol Allergy Swelling Verified 07/20/20 11:47 [From CONTRAST - CT, XRAY] of Lip/Tongue/Throat ENVIRONMENTAL ALLERGENS Allergy Mild Unknown Uncoded 07/20/20 11:47 Review of Systems Review of Systems: All systems reviewed & are unremarkable except as noted in HPI and below PMFSH Past Medical History Medical History Abdominal pain Chronic pancreatitis Constipation Fibromyalgia Gall bladder disease Gastroparesis GERD (gastroesophageal reflux disease) Herniated disc, cervical x4 History of pneumonia Hx of gout Iron deficiency anemia Neuropathy Right arm fracture Surgical History Surgical History H/O hysterectomy with oophorectomy Right oophorectomy H/O right wrist surgery History of cholecystectomy History of knee surgery History of partial cystectomy History of spinal surgery Hx of tubal ligation Family History Family History Mother Diabetes mellitus Father Oral cancer Substance abuse Son Hirschsprung's disease Grandparent Diabetes mellitus Renal disease Grandparent Thyroid cancer Social History Social History Social History: The pt reports that she lives at home with her Harmeet who is her designated POA. She wishes to be a full code. 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 She denies alcohol and tobacco use. She does endorse THC use since 07/2019 which consists of vaping and edibles. She tries to eat a low-fat diet. She is a vegetarian. Smoking status: Never smoker Alcohol intake: never Substance use: never Substance use type: other Other substance usage details: Pt reports THC use (vape and edibles) for her neuropathy w/ onset 07/2019. 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 Gender identity (if verbalized by the patient): Female Spiritual care concerns: No Agree to blood products: Yes Exam Narrative: Exam Narrative: GENERAL: Well-appearing, well-nourished, and in no acute distress. HEAD: Normocephalic, atraumatic. EYES: PERRLA and EOMI. ENT: Nares clear, no rhinorrhea or epistaxis. Mucous membranes moist. NECK: Supple. No adenopathy or masses. CHEST: Clear to auscultation. No respiratory distress. No wheezes rales or rhonchi HEART: Regular rate and rhythm. No murmur heard. Normal peripheral pulses. ABDOMEN: Soft, generalized tenderness, nondistended EXTREMITIES: Normal range of motion. No edema. SKIN: Warm, dry, no rash. NEURO: No focal deficits. Alert and oriented x3. PSYCH: Normal mood and affect. Course Course Emergency Course: Patient in the room in no distress tolerating p.o. intake no high risk changes in the blood work or imaging felt appropriate for outpatient reevaluation by her specialist Vital Signs Vital signs: Vital Signs Temperature 98.
[2020-07-20 11:58] LABS: Basophils Percent Auto 0.2 % (0.2-1.2); Eosinophils Absolute Auto 0.1 K/mm3 (0-0.3); Eosinophils Percent Auto 0.5 % (0-4.4); Hematocrit 41.6 % (37.0-47.0); Hemoglobin 13.6 g/dL (12.0-15.0); Immature Granulocyte Absolute 0.02 K/mm3 (0.00-0.031); Immature Granulocyte Percent A 0.2 % (0-0.5); Lymphocytes Absolute Auto 1.05 K/mm3 (0.9-3.2); Mean Corpuscular HGB Conc 32.7 g/dl (32-36); Mean Corpuscular Hemoglobin 27.4 pg (26-34); Mean Corpuscular Volume 83.7 fl (80-100); Mean Platelet Volume 10.9 fl (7.4-10.4); Monocytes Absolute Auto 0.5 K/mm3 (0.1-0.6); Neutrophils Percent Auto 83.1 % (45.5-73.1); Platelet Count Result 249 k/mm3 (150-375); Red Blood Count 4.97 M/mm3 (4.2-5.4); Red Cell Distribution Width 14.2 % (11.5-14.5); White Blood Count 9.6 K/mm3 (4.5-10.0)
[2020-07-20] MEDS: PROCHLORPERAZINE EDISYLATE 10 MG/2 ML VIAL IM (12:03)
[2020-07-20] MEDS: FAMOTIDINE 20 MG/2 ML VIAL IV PUSH (12:07)
[2020-07-20] MEDS: LORazepam INJ (*CRX) 2 MG/ML VIAL 1 MG IV PUSH (12:08)
[2020-07-20] MEDS: LACTATED RINGERS 1,000 ML 999 ML IV CONT (12:08)
[2020-07-20 12:12] LABS: Alanine Aminotransferase 21 U/L (4-35); Albumin Level 4.4 g/dL (3.5-5.1); Alkaline Phosphatase 105 U/L (38-126); Anion Gap 8 mmol/L (8-16); Aspartate Amino Transferase 28 U/L (14-36); Bilirubin,Total 0.6 mg/dL (0.2-1.3); Blood Urea Nitrogen 4 mg/dL (7-17); Calcium 9.1 mg/dL (8.4-10.2); Carbon Dioxide 25 mmol/L (22-30); Chloride 103 mmol/L (98-107); Estimated Glomerular Filt Rate > 60; Glucose 119 mg/dL (65-105); Lipase 306 U/L (23-300); Potassium 3.7 mmol/L (3.4-5.0); Sodium 136 mmol/L (137-145)
[2020-07-20 12:15] LABS: Add Urine Microscopic? YES; Appearance Urine Cloudy (Clear); Bacteria Urine Trace /hpf; Bilirubin Urine Negative (Negative); Blood Urine Negative (Negative); Color Urine Yellow (Yellow); Glucose Urine UA Negative (Negative); Hyaline Casts Urine 15-19 /lpf; Ketones Urine 1+ mg/dL (Negative); Leukocyte Esterase Ur 3+ LEU/UL (Negative); Mucus Urine Few /lpf; Nitrate Urine Negative (Negative); Protein Urine 1+ mg/dL (Negative); Specific Grav Ur 1.018 (1.001-1.035); Squamous Epithelial Cell Urine Many /hpf (Few); WBC Urine 21-30 /hpf
[2020-07-20 12:19] VITALS: BP 140/90; PULSE 66; RESP 20; O2SAT 98
[2020-07-20 13:05] VITALS: BP 118/75; PULSE 69; RESP 20; O2SAT 95
[2020-07-20] MEDS: PROMETHAZINE HCL 25 MG/ML AMPUL 12.5 MG IV PUSH (13:54)
[2020-07-20] MEDS: HYOSCYAMINE SULFATE 0.125 MG TABLET PO (14:19)
[2020-07-20 14:23] VITALS: BP 140/88; PULSE 80; RESP 20; O2SAT 99
== END 2020-07-20 14:26 | disposition home or self-care (01) ==
PROVIDERS: Emergency Medicine Emergency Medical Services; Emergency Provider Emergency Medicine; PCP Nurse Practitioner Family
DX: R10.9 Unspecified abdominal pain (principal); K86.1 Other chronic pancreatitis; M79.7 Fibromyalgia; K31.84 Gastroparesis; K21.9 Gastro-esophageal reflux disease without esophagitis; M10.9 Gout, unspecified; G62.9 Polyneuropathy, unspecified
CPT/HCPCS: 36415; 74176; 80053; 81001; 83690; 85025; 87086; 96361; 96372; 96374; 96375; 99284; A9270; J0131; J0780; J2060; J2550; J7120

== ENCOUNTER 2020-10-25 09:34 | Emergency (ER) | payer BC, SELFPAY ==
[2020-10-25 09:41] VITALS: BP 141/96; PULSE 76; RESP 16; TEMP 36.1; O2SAT 100
[2020-10-25 09:48] VITALS: BP 141/96; PULSE 76; RESP 16; TEMP 36.1; O2SAT 100
--- NOTE | 2020-10-25 10:00 | ED.ANXIETY ---
HPI - Anxiety General Chief Complaint: Unspecified Stated Complaint: panic attack Time Seen by Provider: 10/25/20 09:47 Source: patient and RN notes reviewed Mode of arrival: ambulatory Limitations: no limitations History of Present Illness HPI narrative: Patient presents today complaining of increased anxiety. She has had several stressful events in the last couple of weeks that have caused her anxiety levels to be very high recently. Her best friend committed suicide 2 weeks ago, her sister's 7 day old baby was removed from sister's custody yesterday after sister tested positive for drugs, and patient's car broke down yesterday, causing her to miss her first day at a new job today. She does have a history significant for PTSD, anxiety, several phobias. Her PCP is currently out of town, but she does have an appointment set up to follow up on November 07. She does not currently have a psychiatrist as her mental health had been doing very well over the past several years. Denies SI or HI. She currently complains of nausea, rapid heart rate, feelings of jitteriness and crying a lot. She did medicate with marijuana around 4:00 this morning, which did provide some relief of symptoms and she was able to sleep. She is waiting to get her medical marijuana card. MD complaint: anxiety Related Data Home Medications Medication Instructions Recorded Confirmed conjugated estrogens [Premarin] mg 10/25/20 Allergies Allergy/AdvReac Type Severity Reaction Status Date / Time NSAIDS (Non-Steroidal Allergy Severe Anaphylactic Verified 10/25/20 09:42 Anti-Inflamma Shock iohexol Allergy Swelling Verified 10/25/20 09:42 [From CONTRAST - CT, XRAY] of Lip/Tongue/Throat ENVIRONMENTAL ALLERGENS Allergy Mild Unknown Uncoded 10/25/20 09:42 Review of Systems Review of Systems: Narrative: CONSTITUTIONAL: Denies body aches, fever, chills, or sweats. EYES: Denies visual changes, redness, or discharge. ENT: Denies rhinorrhea, congestion, sore throat, or otalgia. CARDIOVASCULAR: Denies chest pain, palpitations, or edema. Heart racing RESPIRATORY: Denies cough or dyspnea. GASTROINTESTINAL: Denies abdominal pain, nausea, vomiting, or diarrhea. GENITOURINARY: Denies dysuria or hematuria. SKIN: Denies rash, itching, or wounds. MUSCULOSKELETAL: Denies back pain, joint pain, or myalgia. NEUROLOGIC: Denies headache, numbness, tingling, or weakness. PSYCH: Anxiety PMFSH Past Medical History Medical History (Updated 10/25/20 @ 10:43 by Candi Nazario, [facility], ) Abdominal pain Chronic pancreatitis Constipation Fibromyalgia Gall bladder disease Gastroparesis GERD (gastroesophageal reflux disease) Herniated disc, cervical x4 History of pneumonia Hx of gout Iron deficiency anemia Neuropathy PTSD (post-traumatic stress disorder) Right arm fracture Surgical History Surgical History H/O hysterectomy with oophorectomy Right oophorectomy H/O right wrist surgery History of cholecystectomy History of knee surgery History of partial cystectomy History of spinal surgery Hx of tubal ligation Family History Family History Mother Diabetes mellitus Father Oral cancer Substance abuse Son Hirschsprung's disease Grandparent Diabetes mellitus Renal disease Grandparent Thyroid cancer Social History Social History Social History: The pt reports that she lives at home with her Harmeet who is her designated POA. She wishes to be a full code. 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 She denies alcohol and tobacco use. She does endorse THC use since 07/2019 which consists of vaping and edibles. She tries to eat a low-fat diet. She is a vegetarian. Smoking status: Never smoker Alcohol intake: never Substance use: never Substance use type: other Other substance usage
== END 2020-10-25 10:07 | disposition home or self-care (01) ==
PROVIDERS: Emergency Provider Nurse Practitioner; PCP Nurse Practitioner Family
DX: F41.8 Other specified anxiety disorders (principal); M79.7 Fibromyalgia; K21.9 Gastro-esophageal reflux disease without esophagitis; M10.9 Gout, unspecified; F43.10 Post-traumatic stress disorder, unspecified; G62.9 Polyneuropathy, unspecified
CPT/HCPCS: 99213; G0463

== ENCOUNTER 2020-12-18 10:23 | Outpatient (CLI) | payer BC, SELFPAY ==
--- NOTE | ~2020-12-18 | US_ITS ---
EXAMINATION: US venous doppler [facility] DATE: 12/18/2020 10:58 INDICATION: Left lower limb swelling and pain TECHNIQUE: Redman scale images without and with compression and Doppler images of the left lower extrem ity veins were obtained. COMPARISON: None FINDINGS: The left common femoral vein, profunda femoral vein, femoral vein, popliteal vein, peroneal trunk, posterior tibial veins, and greater saphenous vein are patent. IMPRESSION: 1. Patent left lower extremity veins. No evidence of deep venous thrombosis. Reviewed, dictated and finalized at location A. CTOR OF MIDWIFERY/STAFF MIDWIFE
== END 2020-12-18 10:24 | disposition home or self-care (01) ==
LOC: ANHIMG 10:26
PROVIDERS: PCP Nurse Practitioner Family; Visit Provider Nurse Practitioner Family
DX: R22.42 Localized swelling, mass and lump, left lower limb (principal)
CPT/HCPCS: 93971

== ENCOUNTER 2023-11-02 13:13 | Emergency (ER) | payer BC, SELFPAY ==
[2023-11-02 13:38] VITALS: BP 155/136; PULSE 86; RESP 16; TEMP 36.6; O2SAT 98
--- NOTE | 2023-11-02 13:45 | ED.FEMALEGU ---
HPI - Female Genitourinary General Chief complaint: Urogenital-Female Stated complaint: UTI SYMPTOMS Source: patient and RN notes reviewed Mode of arrival: ambulatory Limitations: no limitations History of Present Illness HPI Narrative: 43-year-old female presented for complaint burning with urination, frequency, urgency, as well as incontinence over the past few days. Patient endorses occasional urinary incontinence related to a TBI and post concussive syndrome, for which she does wear diapers, however patient endorses last night she had frequent urinary incontinence of varying amounts. Denies hematuria, worsening nausea/ vomiting from baseline, abdominal pain, flank pain, constipation, diarrhea, fevers or chills. Denies vaginal itching, discharge, or bumps/lesions. Pt states she had sexual relations with her 2 days ago for the first time in several months, and developed the pain subsequently; admits he has had infidelity problems in the past. Related Data Home Medications Medication Instructions Recorded Confirmed amitriptyline 50 mg tablet 50 mg PO BID 11/02/23 11/02/23 celecoxib 200 mg capsule 200 mg PO BID 11/02/23 11/02/23 gabapentin 100 mg capsule 100 mg PO TID 11/02/23 11/02/23 trazodone 50 mg tablet 50 mg PO HS 11/02/23 11/02/23 Allergies Allergy/AdvReac Type Severity Reaction Status Date / Time iohexol Allergy Severe Swelling Verified 11/02/23 13:28 [From CONTRAST - CT, XRAY] of Lip/Tongue/Throat NSAIDS (Non-Steroidal Allergy Severe Anaphylactic Verified 11/02/23 13:28 Anti-Inflamma Shock ENVIRONMENTAL ALLERGENS AdvReac Mild Rash Uncoded 11/02/23 13:28 Review of Systems Review of Systems: CONSTITUTIONAL: Denies body aches, fever, chills, or sweats. CARDIOVASCULAR: Denies chest pain, palpitations, or edema. RESPIRATORY: Denies cough or dyspnea. GASTROINTESTINAL: Denies new abdominal pain, nausea, vomiting, or diarrhea. GENITOURINARY: Reports dysuria, frequency, urgency, denies hematuria, flank pain SKIN: Denies rash, itching, or wounds. MUSCULOSKELETAL: Denies new back pain or myalgia. [facility] Past Medical History Medical History Abdominal pain Chronic pancreatitis Constipation Fibromyalgia Gall bladder disease Gastroparesis GERD (gastroesophageal reflux disease) Herniated disc, cervical x4 History of pneumonia Hx of gout Iron deficiency anemia Neuropathy PTSD (post-traumatic stress disorder) Right arm fracture Surgical History Surgical History H/O hysterectomy with oophorectomy Right oophorectomy H/O right wrist surgery History of cholecystectomy History of knee surgery History of partial cystectomy History of spinal surgery Hx of tubal ligation Family History Family History Mother Diabetes mellitus Father Oral cancer Substance abuse Son Hirschsprung's disease Grandparent Diabetes mellitus Renal disease Grandparent Thyroid cancer Social History Social History Social History: The pt reports that she lives at home with her Harmeet who is her designated POA. She wishes to be a full code. 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 She denies alcohol and tobacco use. She does endorse THC use since 07/2019 which consists of vaping and edibles. She tries to eat a low-fat diet. She is a vegetarian. Smoking status: Never smoker Alcohol intake: never Substance use: never Substance use type: other Other substance usage details: Pt reports THC use (vape and edibles) for her neuropathy w/ onset 07/2019. 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 Gender identity (if verbalized by the patient): Female Spiritual care concerns: No Agree to blood pr
[2023-11-02 13:50] VITALS: BP 148/100
[2023-11-02 21:13] LABS: Trichomonas Vag PCR NOT DETECTED (NOT DETECTE)
[2023-11-02 21:39] LABS: Chlamydia trachomatis NOT DETECTED (NOT DETECTE); Neisseria gonorrhoeae PCR NOT DETECTED (NOT DETECTE)
== END 2023-11-02 14:04 | disposition home or self-care (01) ==
PROVIDERS: Emergency Provider Nurse Practitioner Family; PCP Nurse Practitioner Family
DX: R30.0 Dysuria (principal); M79.7 Fibromyalgia; K31.84 Gastroparesis; K21.9 Gastro-esophageal reflux disease without esophagitis; M10.9 Gout, unspecified; D50.9 Iron deficiency anemia, unspecified
CPT/HCPCS: 81003; 87086; 87088; 87491; 87591; 87661; 99214; G0463

== ENCOUNTER 2023-11-23 14:39 | Outpatient (CLI) | payer OTHER, SELFPAY ==
--- NOTE | ~2023-11-23 | MR_ITS ---
EXAMINATION: MR shoulder RT w con DATE: 11/23/2023 16:36 INDICATION: Right shoulder pain TECHNIQUE: Magnetic resonance imaging (MRI) of the right shoulder was performed following intra-jacek cular gadolinium contrast injection and without intravenous contrast. Details of the glenohumeral rachel nt injection have been dictated separately. Sequences included axial T2-weighted FS FSE, axial T1-we ighted FS FSE, coronal oblique T1-weighted FS FSE, coronal oblique T2-weighted FSE, sagittal T2-weigh oriana FS FSE, sagittal T1-weighted FSE, and ABER (abduction external rotation) T1-weighted FS FSE. COMPARISON: None. FINDINGS: Patient has a severe allergy to iodinated contrast which precluded standard fluoroscopic guidance for the gadolinium contrast injection. Ultrasound was utilized for the contrast injection. This resulted in intrasubstance injection of a small amount of MR contrast into the distal supraspinatus tendon an d minimally into the cephalad-most aspect of the subscapularis tendon. There is contrast enhancement of the fluid within the glenohumeral joint space although the degree of distention is suboptimal. Coracoacromial arch: The acromion undersurface is curved in morphology (type II). The coracoacromial ligament is normal. Acromioclavicular joint is normal. Rotator cuff: There is intrasubstance contrast imbibition in the distal supraspinatus tendon without an evident tea r defect along the articular side of the tendon in this likely represents some of the directly inject ed contrast. Similar there is a minimal amount of intrasubstance contrast along the cephalad-most sub scapularis tendon. The subscapularis tendon is otherwise normal as is the infraspinatus and teres min or tendons. Normal rotator cuff muscle bulk and signal. Biceps tendon, glenoid labrum and glenohumeral cartilage: Long head of the biceps tendon is normal. Glenohumeral cartilage is normal. There is a normal subling ual foramen at the anterosuperior glenoid. The posterior to anteroinferior glenoid labrum appears dim inutive. There is a tear of the inferior labrum beginning anteriorly near the 3:00 position and exten ding posterior to at least the 7:00 position. The more cephalad posterior to posterosuperior labrum a ppears diminutive which could represent either sequela labral degeneration or sequela of labral tear and displacement of the labral tissue. Bones and other: Bone alignment is normal. Normal marrow signal with no edema, fracture or abnormal marrow replacing p rocess. Small amount of contrast enhanced fluid in the subacromial/subdeltoid bursa without evidence of full-thickness rotator cuff tear in this most likely represents some extravasation related to the contrast injection. IMPRESSION: 1. Somewhat limited study resulting from extravasation of some of the injected contrast into the dist al supraspinatus and the cephalad-most scapular tendons at the site of injection. Contrast injection was performed with ultrasound guidance as the patient's severe contrast allergy precluded standard fl uoroscopic guidance for administration. 2. Tear of the anteroinferior to posterior inferior glenoid labrum with diminutive posterior to poste rior superior labrum which could represent either degeneration or additional more cephalad extension of the tear and displacement of the meniscal tissue. Reviewed, dictated and finalized at location A. NORMAL INVESTIGATOR IMPRESSION: 1. Somewhat limited study resulting from extravasation of some of the injected contrast into the distal supraspinatus and the cephalad-most scapular tendons a t the site of injection. Contrast injection was performed with ultrasound rogerio nce as the patient's severe contrast allergy precluded standard fluoroscopic gu idance for administration. 2. Tear of the anteroinferior
--- NOTE | ~2023-11-23 | US_ITS ---
EXAMINATION: US tendon injection RT DATE: 11/23/2023 16:20 INDICATION: Right shoulder pain. Joint injection required for planned MRI arthrogram and fluoroscopy only able to be utilized as patient has a severe iodinated contrast allergy. TECHNIQUE: The procedure including the risks, benefits, and alternatives was discussed with the patie nt. Risks discussed included bleeding, infection and allergic reaction. The patient understood the ri sks and agreed to proceed. A timeout was performed to verify the patient's name, date of , an d procedure to be performed. The skin overlying the right humeral head was prepped and draped in usu al sterile fashion. Anesthetic was administered with 1% lidocaine subcutaneously. A 25 gauge needle was then advanced into the right glenohumeral joint under continuous sonographic guidance the needle tip contacting the articular cartilage at the humeral head near the anterior aspect of the superior f acet. 5 mm of a 1:1 mixture of 1% lidocaine: sterile saline was injected under continuous ultrasound observation. The needle was withdrawn and is 25-gauge needle was advanced into the joint space at the same location and an additional 2 mL of a 1:3 mixture of 1% lidocaine: sterile saline mixed 100:1 wi th 529 mg/mL Multihance gadolinium was injected into the joint space. The needle was removed and a st erile bandage was applied. The patient was then transferred to the MR scanner for subsequent MRI arth rogram. FINDINGS: Real-time ultrasound demonstrates the needle on the right glenohumeral joint space along the articula r cortex of the right humeral head. IMPRESSION: 1. Successful right glenohumeral joint injection of a dilute gadolinium contrast mixture for subseque nt MRI arthrogram which will be dictated separately. Reviewed, dictated and finalized at location A. ICAL DOCUMENTATION NURSE IMPRESSION: 1. Successful right glenohumeral joint injection of a dilute gadolinium contras t mixture for subsequent MRI arthrogram which will be dictated separately.
== END 2023-11-23 14:40 | disposition home or self-care (01) ==
PROVIDERS: PCP Nurse Practitioner Family
DX: M25.511 Pain in right shoulder (principal)
CPT/HCPCS: 20550; 73222; A9577

== ENCOUNTER 2023-11-30 09:44 | Outpatient (CLI) | payer OTHER, SELFPAY ==
--- NOTE | 2023-11-30 11:00 | NEURO_ITS ---
Impression: # Complains of numbness of hands. ? # Normal Nerve Conduction Study. ? # No Carpal Tunnel Syndrome or ulnar neuropathy. ? # Needle/EMG exam not requested. Nerve Conduction Studies Anti Sensory Summary Table Stim Site NR Peak (ms) P-T Amp (?V) Site1 Site2 Delta-P (ms) Dist (cm) Ernst (m/s) Left Median Anti Sensory (2-3nd Digit) Wrist 2.3 77.6 Wrist 2-3nd Digit 2.3 14.0 61 Wrist 2.3 67.4 Wrist 2-3nd Digit 2.3 14.0 61 Right Median Anti Sensory (2-3nd Digit) Wrist 2.4 73.9 Wrist 2-3nd Digit 2.4 14.0 58 Wrist 2.4 97.5 Wrist 2-3nd Digit 2.4 14.0 58 Left Radial Anti Sensory (Base 1st Digit) Wrist 1.9 33.1 Wrist Base 1st Digit 1.9 0.0 Right Radial Anti Sensory (Base 1st Digit) Wrist 2.1 31.6 Wrist Base 1st Digit 2.1 0.0 Left Ulnar Anti Sensory (5th Digit) Wrist 2.0 68.0 Wrist 5th Digit 2.0 14.0 70 Right Ulnar Anti Sensory (5th Digit) Wrist 2.1 49.6 Wrist 5th Digit 2.1 14.0 67 Motor Summary Table Stim Site NR Onset (ms) O-P Amp (mV) Site1 Site2 Delta-0 (ms) Dist (cm) Ernst (m/s) Left Median Motor (Abd Poll Brev) Wrist 2.9 5.2 Elbow Wrist 4.6 27.0 59 Elbow 7.5 4.3 Right Median Motor (Abd Poll Brev) Wrist 2.6 9.8 Elbow Wrist 4.5 28.0 62 Elbow 7.1 4.7 Left Ulnar Motor (Abd Dig Minimi) Wrist 2.0 7.0 A Elbow Wrist 4.5 27.0 60 A Elbow 6.5 6.3 Right Ulnar Motor (Abd Dig Minimi) Wrist 2.1 6.7 A Elbow Wrist 4.7 28.0 60 A Elbow 6.8 6.1 F Wave Studies NR F-Lat (ms) L-R F-Lat (ms) Left Median (Mrkrs) (Abd Poll Brev) 27.19 0.89 Right Median (Mrkrs) (Abd Poll Brev) 26.30 0.89 Left Ulnar (Mrkrs) (Abd Dig Min) 26.23 0.33 Right Ulnar (Mrkrs) (Abd Dig Min) 26.56 0.33 MTDD
== END 2023-11-30 09:45 | disposition home or self-care (01) ==
PROVIDERS: PCP Nurse Practitioner Family
DX: R20.0 Anesthesia of skin (principal); M54.12 Radiculopathy, cervical region
CPT/HCPCS: 95911

== ENCOUNTER 2024-06-11 13:12 | Emergency (ER) | payer BC, SELFPAY ==
--- NOTE | ~2024-06-11 | XR_ITS ---
EXAM: XR elbow LT min 3V, XR shoulder LT min 2V, XR humerus LT DATE: 06/11/2024 14:45 HISTORY: FALL TODAY, LEFT ARM STUCK IN ARM RAIL WHILE FALLING DOWN . COMPARISON: None available. FINDINGS: Normal mineralization. Subtle, focal area of cortical irregularity along the superolateral humeral head (seen best in the frontal external rotation view). No lytic or blastic lesion. Joint sp aces are maintained. No erosion or periosteal change. Soft tissues within normal limits. IMPRESSION: Small nondisplaced left greater tuberosity fracture. Otherwise no acute finding in the re mainder of the shoulder, humerus, or elbow. Reviewed, dictated and finalized at location K. IMPRESSION: Small nondisplaced left greater tuberosity fracture. Otherwise no a cute finding in the remainder of the shoulder, humerus, or elbow. IMPRESSION: Small nondisplaced left greater tuberosity fracture. Otherwise no a cute finding in the remainder of the shoulder, humerus, or elbow.
--- NOTE | ~2024-06-11 | CT_ITS ---
EXAMINATION: CT cervical spine wo con DATE: 06/11/2024 14:29 INDICATION: Left arm numbness and tingling post fall TECHNIQUE: Computed tomography (CT) of the cervical spine was performed without intravenous contrast. Automated exposure control and iterative reconstruction technique were employed. The dose-length pro duct was 369.22 mGy-cm. COMPARISON: None FINDINGS: 7 degrees cervicothoracic dextrocurvature. Straightening of the normal cervical lordosis. No spondylo listhesis or facet subluxation. C5-C6 anterior spinal fusion with anterior plate and screw fixation. Alignment nearly bridging anterior osteophytes at C4-C5. Vertebral body heights are normal. No fractu re. Disc heights are normal. There is multilevel minimal to mild cervical uncovertebral right and fac et osteoarthritis. No central canal or neural foraminal stenosis. Cervical soft tissues are unremarka ble. Visualized apices of lungs are clear. IMPRESSION: 1. 7 degrees cervicothoracic dextrocurvature and instrumented C5-C6 anterior spinal fusion. No acute osseous abnormality. Reviewed, dictated and finalized at location A. IMPRESSION: 1. 7 degrees cervicothoracic dextrocurvature and instrumented C5-C6 anterior sp inal fusion. No acute osseous abnormality.
--- NOTE | ~2024-06-11 | CT_ITS ---
CT brain wo con Ordering provider: Suha Lazo III, DO History: 43 years Female with . fall . Comparison: None. Technique: CT of the head without contrast. Radiation reduction technique utilized. DLP is 605.33 mGy-cm. FINDINGS: BRAIN PARENCHYMA AND CSF SPACES: No midline shift, mass effect or hemorrhage. The brain parenchyma a nd CSF spaces are otherwise normal. VISUALIZED PARANASAL SINUSES: Well aerated. MASTOIDS: Well aerated. BONES: The bones appear intact. SOFT TISSUES: Visualized nasopharynx is normal. Superficial soft tissues are normal. IMPRESSION: No acute intracranial findings. Reviewed, dictated and finalized at location A.
[2024-06-11 13:55] VITALS: BP 144/99; PULSE 68; RESP 18; TEMP 36.2; O2SAT 98
--- NOTE | 2024-06-11 15:33 | ED.FALL ---
HPI - Fall General Chief Complaint: Fall Stated Complaint: L arm pain after falling down 10 stairs Time Seen by Provider: 06/11/24 15:33 Source: patient Mode of arrival: ambulatory Limitations: no limitations History of Present Illness HPI Narrative: Patient is a 43-year-old female who presents the ED with report of left shoulder pain. Patient reports a history of post concussive syndrome from a concussion she sustained in December 2022. She has frequent falls, episodic dizziness. Currently undergoing vestibular therapy twice a week. She states she was walking down her stairs today when she began feeling dizzy. She then slipped and fell down approx 10 stairs. states her left arm was bent backwards strained her trying to hold onto the banister rail. She complains of significant pain to her left shoulder/ left upper arm. She did hit her head, but denied LOC. she states if it were not for the pain in her left shoulder, she would not have been evaluated. She states the dizziness she experienced today is consistent with her post concussion syndrome. She denies any changes in dizziness today, dizziness currently. Denies focal weakness or numbness, vision changes, chest pain, shortness of breath. Related Data Home Medications Medication Instructions Recorded Confirmed amitriptyline 50 mg tablet 50 mg PO BID 11/02/23 11/02/23 celecoxib 200 mg capsule 200 mg PO BID 11/02/23 11/02/23 gabapentin 100 mg capsule 100 mg PO TID 11/02/23 11/02/23 trazodone 50 mg tablet 50 mg PO HS 11/02/23 11/02/23 Allergies Allergy/AdvReac Type Severity Reaction Status Date / Time iohexol Allergy Severe Swelling Verified 06/11/24 13:13 [From CONTRAST - CT, XRAY] of Lip/Tongue/Throat NSAIDS (Non-Steroidal Allergy Severe Anaphylactic Verified 06/11/24 13:13 Anti-Inflamma Shock ENVIRONMENTAL ALLERGENS AdvReac Mild Rash Uncoded 06/11/24 13:13 Review of Systems Review of Systems: All systems reviewed & are unremarkable except as noted in HPI. All systems reviewed & are unremarkable except as noted in HPI and below PMFSH Past Medical History Medical History Abdominal pain Chronic pancreatitis Constipation Fibromyalgia Gall bladder disease Gastroparesis GERD (gastroesophageal reflux disease) Herniated disc, cervical x4 History of pneumonia Hx of gout Iron deficiency anemia Neuropathy PTSD (post-traumatic stress disorder) Right arm fracture Surgical History Surgical History H/O hysterectomy with oophorectomy Right oophorectomy H/O right wrist surgery History of cholecystectomy History of knee surgery History of partial cystectomy History of spinal surgery Hx of tubal ligation Family History Family History Mother Diabetes mellitus Father Oral cancer Substance abuse Son Hirschsprung's disease Grandparent Diabetes mellitus Renal disease Grandparent Thyroid cancer Social History Social History Social History: The pt reports that she lives at home with her Harmeet who is her designated POA. She wishes to be a full code. 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 She denies alcohol and tobacco use. She does endorse THC use since 07/2019 which consists of vaping and edibles. She tries to eat a low-fat diet. She is a vegetarian. Smoking status: Never smoker Alcohol intake: never Substance use: never Substance use type: other Other substance usage details: Pt reports THC use (vape and edibles) for her neuropathy w/ onset 07/2019. 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 Gender identity (if verbalized by the patient): Female Spiritual care concerns: No Agree to blood p
[2024-06-11] MEDS: HYDROcodone/acetaminophen (*CRX) 5-325 MG TABLET 1 TAB PO (15:52)
== END 2024-06-11 16:10 | disposition home or self-care (01) ==
LOC: ANHED 15:57
PROVIDERS: Emergency Provider Physician Assistant; PCP Nurse Practitioner Family
DX: S42.255A Nondisplaced fracture of greater tuberosity of left humerus, initial encounter for closed fracture (principal); D50.9 Iron deficiency anemia, unspecified; K31.84 Gastroparesis; G62.9 Polyneuropathy, unspecified; K21.9 Gastro-esophageal reflux disease without esophagitis; K86.1 Other chronic pancreatitis; M79.7 Fibromyalgia; M10.9 Gout, unspecified; F43.10 Post-traumatic stress disorder, unspecified; Z98.1 Arthrodesis status; Z87.01 Personal history of pneumonia (recurrent); Z90.710 Acquired absence of both cervix and uterus; Z90.49 Acquired absence of other specified parts of digestive tract; Z79.899 Other long term (current) drug therapy; W10.9XXA Fall (on) (from) unspecified stairs and steps, initial encounter
CPT/HCPCS: 70450; 72125; 73030; 73060; 73080; 99284; A4565; A9270